=== PATIENT | female | born 1975 | race Caucasian/White ===

== ENCOUNTER 2017-04-25 17:29 | Emergency (ER) | payer MEDICAID ==
[~2017-04-25] VITALS: Ht 170.2 cm; Wt 67.6 kg
[~2017-04-25 17:29] MED LIST: ACETAMINOPHEN-1 EAC1 PO; ACYCLOVIR PO; AMOX TR-K CLV1 EAC4 PO; AMOXICILLIN500 M1 PO; ANTIVERT25 MG PO; BACTRIM DS TAB1 EACH PO; BENTYL 20 MG TA20 M1 PO; BENTYL20 MG PO; BENZONATATE200 MG PO; BUSPAR30 MG PO; BUSPIRONE HCL10 MG PO; CELEXA20 MG PO; CEPHALEXIN 500500 M3 PO; CIPRO250 M2 PO; CIPRO500 MG PO; CIPROFLOXACIN500 M1 PO; CLONAZEPAM 1 MG1 M1 PO; COMPAZINE10 MG PO; DOXYCYCLINE 10100 MG PO; EASY-LAX100 MG PO; ENOXAPARIN40 MG/0.1 SQ; ERYTHROMYCIN250 M1 PO; ERYTHROMYCIN250 MG PO; FLAGYL500 MG PO; FLEXERIL PO; FLOMAX0.4 MG PO; HYDROCODONE-AP1 EAC6 PO; HYDROCODONE-AP1 EACH PO; IBUPROFEN 800800 M1 PO; IMODIUM; IMODIUM A-D2 MG PO; LAMICTAL XR100 MG PO; LAMICTAL100 MG PO; LEVSIN-SL0.125 MG SL; LOMOTIL 2.5-0.01 TAB PO; LOMOTIL TABLET1 EACH PO; LOPERAMIDE 2 MG2 M1 PO; MACROBID 100 M100 M1 PO; MACROBID 100 M100 M2 PO; MIRALAX17 GM PO; NAPROSYN500 MG PO; NORCO 5-325 TA1 EACH PO; OMEPRAZOLE 20 M20 M1 PO; OMEPRAZOLE20 M1 PO; OMEPRAZOLE40 MG PO; ONDANSETRON HCL4 M2 PO; ONDANSETRON ODT4 MG DISSOLVE; ONDANSETRON ODT8 MG PO; PHENAZOPYRIDIN200 M2 PO; PHENERGAN 25 MG25 M1 PO; PRENATAL TABLE1 EAC3 PO; PRILOSEC40 MG PO; PROMETHAZINE TOP; PROTONIX 20 MG20 M1 PO; PROTONIX40 M1 PO; REGLAN 10 MG TA10 MG PO; TRANSDERM-SCO1 PATC1 TRANSDERM; TRINATE TABLET1 TAB PO; VICODIN 5-3001 EACH PO; VISTARIL 25 MG25 M1 PO; WELLBUTRIN XL150 MG PO; WELLBUTRIN XL300 MG PO; XANAX XR1 MG PO; ZANTAC 150MG T150 MG PO; ZOFRAN 4 MG ORAL4 MG PO; ZOFRAN ODT4 MG PO; ZOFRAN ODT4 MG SUBLING; ZOFRAN4 MG PO; ZPAK PO
[2017-04-25] MEDS ORDERED: PRENATAL PO (17:37)
[2017-04-25 18:06] LABS: ABSOLUTE BASOPHILS 0.1 thou/uL (0.0-0.2); ABSOLUTE EOSINOPHILS 0.1 thou/uL (0.0-0.7); ABSOLUTE LYMPHOCYTES 1.6 thou/uL (0.8-5.3); ABSOLUTE MONOCYTES 0.4 thou/uL (0.0-1.2); ABSOLUTE NEUTROPHILS 5.5 thou/uL (1.6-8.1); BASOPHILS 0.9 %; EOSINOPHILS 0.7 %; HEMATOCRIT 37.1 % (37.0-47.0); HEMOGLOBIN 12.3 gm/dL (12.0-15.0); LYMPHOCYTES 21.1 %; MCH 27.4 pg (26.0-34.0); MCHC 33.1 g/dL (28.0-37.0); MCV 82.7 fL (80.0-100.0); MONOCYTES 5.7 %; MPV 8.9 fl. (7.2-11.1); NUCLEATED RBCS 0 /100WBC; PLATELET COUNT* 216 thou/uL (150-400); POLYS 71.6 %; RBC 4.49 mil/uL (4.20-5.00); RDW-CV 15.8 % (10.5-14.5); WBC 7.7 thou/uL (4.0-11.0)
[2017-04-25 18:10] LABS: URINE BILIRUBIN NEGATIVE (Negative); URINE BLOOD NEGATIVE (Negative); URINE CLARITY CLEAR; URINE COLOR YELLOW; URINE GLUCOSE-RANDOM NEGATIVE (Negative); URINE KETONES NEGATIVE (Negative); URINE LEUKOCYTES-REFLEX NEGATIVE (Negative); URINE NITRITE-REFLEX NEGATIVE (Negative); URINE PROTEIN NEGATIVE (Negative); URINE SPECIFIC GRAVITY 1.025 (1.005-1.030); URINE UROBILINOGEN 0.2 E.U./dl (0.2-1.0)
[2017-04-25 18:14] LABS: CALCIUM 8.6 mg/dL (8.5-10.1); CREATININE 0.7 mg/dL (0.6-1.3); POTASSIUM 3.5 mmol/L (3.5-5.1)
[2017-04-25 18:19] LABS: ALBUMIN 3.6 g/dL (3.4-5.0); TOTAL BILIRUBIN 0.3 mg/dL (<0.1-1.0); TOTAL PROTEIN 7.2 g/dL (6.4-8.2)
[2017-04-25 18:40] LABS: AMP/METHAMP Negative (Negative); BARBITURATES Negative (Negative); BENZODIAZEPINES Negative (Negative); COCAINE Negative (Negative); METHADONE Negative (Negative); OPIATES Negative (Negative); PCP Negative (Negative); THC Negative (Negative)
[2017-04-25 19:49] VITALS: BP 119/78
== END 2017-04-25 19:51 | disposition home or self-care (01) ==
LOC: M.ERS 17:29
PROVIDERS: Physician Assistant
DX: O20.0 Threatened abortion (principal); Z3A.11 11 weeks gestation of pregnancy; F41.9 Anxiety disorder, unspecified; F32.9 Major depressive disorder, single episode, unspecified; Z87.442 Personal history of urinary calculi; Z97.8 Presence of other specified devices; Z98.890 Other specified postprocedural states; Z91.041 Radiographic dye allergy status; Z88.8 Allergy status to other drugs, medicaments and biological substances; Z87.891 Personal history of nicotine dependence

== ENCOUNTER 2018-01-06 18:17 | Emergency (ER) | payer OTHER, MEDICAID ==
[~2018-01-06] VITALS: Ht 170.2 cm; Wt 68.0 kg
[~2018-01-06 18:17] MED LIST changes: +PRENATAL PO
[2018-01-06 18:36] LABS: URINE BILIRUBIN NEGATIVE (Negative); URINE BLOOD NEGATIVE (Negative); URINE CLARITY CLEAR; URINE COLOR YELLOW; URINE GLUCOSE-RANDOM NEGATIVE (Negative); URINE KETONES NEGATIVE (Negative); URINE LEUKOCYTES-REFLEX NEGATIVE (Negative); URINE NITRITE-REFLEX NEGATIVE (Negative); URINE PROTEIN NEGATIVE (Negative); URINE UROBILINOGEN 0.2 E.U./dl (0.2-1.0)
[2018-01-06 19:07] LABS: ABSOLUTE BASOPHILS 0.1 thou/uL (0.0-0.2); ABSOLUTE EOSINOPHILS 0.1 thou/uL (0.0-0.7); ABSOLUTE LYMPHOCYTES 1.4 thou/uL (0.8-5.3); ABSOLUTE MONOCYTES 0.4 thou/uL (0.0-1.2); BASOPHILS 1.1 %; EOSINOPHILS 2.3 %; HEMATOCRIT 37.8 % (37.0-47.0); HEMOGLOBIN 12.6 gm/dL (12.0-15.0); LYMPHOCYTES 28.4 %; MCH 29.2 pg (26.0-34.0); MCHC 33.5 g/dL (28.0-37.0); MCV 87.1 fL (80.0-100.0); MONOCYTES 8.3 %; MPV 8.2 fl. (7.2-11.1); NUCLEATED RBCS 0 /100WBC; PLATELET COUNT* 230 thou/uL (150-400); POLYS 59.9 %; RBC 4.33 mil/uL (4.20-5.00); RDW-CV 15.9 % (10.5-14.5); WBC 5.1 thou/uL (4.0-11.0)
[2018-01-06 19:14] LABS: CALCIUM 8.3 mg/dL (8.5-10.1); POTASSIUM 3.7 mmol/L (3.5-5.1)
[2018-01-06 19:19] LABS: ALBUMIN 3.7 g/dL (3.4-5.0); TOTAL BILIRUBIN 0.3 mg/dL (<0.1-1.0)
[2018-01-06] MEDS ORDERED: LEVSIN0.125 MG PO (20:22)
[2018-01-06] MEDS ORDERED: CARAFATE1 GM/10 ML PO (20:22)
[2018-01-06 20:54] VITALS: BP 147/90
== END 2018-01-06 20:55 | disposition home or self-care (01) ==
LOC: M.ERS 18:17
PROVIDERS: Nurse Practitioner Family
DX: K27.9 Peptic ulcer, site unspecified, unspecified as acute or chronic, without hemorrhage or perforation (principal); F41.9 Anxiety disorder, unspecified; K50.90 Crohn's disease, unspecified, without complications; F32.9 Major depressive disorder, single episode, unspecified; Z87.891 Personal history of nicotine dependence; Z91.041 Radiographic dye allergy status; Z88.8 Allergy status to other drugs, medicaments and biological substances

== ENCOUNTER → 2018-01-25 | Outpatient (CLI) | payer MEDICAID ==
[~2018-01-25] MED LIST changes: +CARAFATE1 GM/10 ML PO; +LEVSIN0.125 MG PO
== END ==
LOC: M.NUC 13:00
DX: R11.2 Nausea with vomiting, unspecified (principal); R19.7 Diarrhea, unspecified

== ENCOUNTER → 2018-03-01 | Outpatient (CLI) | payer MEDICAID | LOC: M.NUC 11:50 | DX: R11.2 Nausea with vomiting, unspecified (principal); R19.7 Diarrhea, unspecified; R10.9 Unspecified abdominal pain ==

== ENCOUNTER 2018-04-29 13:03 | Emergency (ER) | payer MEDICAID ==
[~2018-04-29] VITALS: Ht 170.2 cm; Wt 77.1 kg
[2018-04-29 13:16] VITALS: BP 146/89
[2018-04-29] MEDS ORDERED: ZOFRAN ODT4 MG DISSOLVE (13:34)
[2018-04-29] MEDS ORDERED: CELEXA10 MG PO (13:34)
[2018-04-29] MEDS ORDERED: BENTYL 10 MG CA10 M1 PO (13:34)
[2018-04-29 13:43] LABS: URINE BILIRUBIN NEGATIVE (Negative); URINE BLOOD NEGATIVE (Negative); URINE CLARITY CLEAR; URINE COLOR YELLOW; URINE GLUCOSE-RANDOM NEGATIVE (Negative); URINE KETONES NEGATIVE (Negative); URINE LEUKOCYTES-REFLEX NEGATIVE (Negative); URINE NITRITE-REFLEX NEGATIVE (Negative); URINE PROTEIN NEGATIVE (Negative); URINE SPECIFIC GRAVITY 1.025 (1.005-1.030); URINE UROBILINOGEN 0.2 E.U./dl (0.2-1.0)
[2018-04-29 14:05] LABS: ABSOLUTE EOSINOPHILS 0.1 thou/uL (0.0-0.7); ABSOLUTE MONOCYTES 0.3 thou/uL (0.0-1.2); HEMOGLOBIN 13.2 gm/dL (12.0-15.0); MPV 8.5 fl. (7.2-11.1); WBC 6.7 thou/uL (4.0-11.0)
[2018-04-29 14:07] LABS: ABSOLUTE LYMPHOCYTES 1.5 thou/uL (0.8-5.3); ABSOLUTE NEUTROPHILS 4.7 thou/uL (1.6-8.1); BASOPHILS 0.7 %; EOSINOPHILS 1.3 %; HEMATOCRIT 38.8 % (37.0-47.0); LYMPHOCYTES 22.7 %; MCH 30.4 pg (26.0-34.0); MCHC 34.1 g/dL (28.0-37.0); MCV 89.2 fL (80.0-100.0); MONOCYTES 5.2 %; NUCLEATED RBCS 0 /100WBC; PLATELET COUNT* 210 thou/uL (150-400); POLYS 70.1 %; RBC 4.35 mil/uL (4.20-5.00); RDW-CV 12.5 % (10.5-14.5)
[2018-04-29 14:16] LABS: CALCIUM 9.1 mg/dL (8.5-10.1); CREATININE 0.9 mg/dL (0.6-1.3)
[2018-04-29 14:21] LABS: ALBUMIN 3.7 g/dL (3.4-5.0); TOTAL BILIRUBIN 0.3 mg/dL (<0.1-1.0); TOTAL PROTEIN 7.2 g/dL (6.4-8.2)
[2018-04-29] MEDS ORDERED: MEDROLDOSEPACK PO (15:03)
[2018-04-29] MEDS ORDERED: IBUPROFEN 800800 M1 PO (15:03)
[2018-04-29] MEDS ORDERED: HYDROCODONE-AP1 EAC6 PO (15:03)
[2018-04-29] MEDS ORDERED: FLEXERIL PO (15:03)
[2018-04-29] MEDS ORDERED: ONDANSETRON HCL4 M2 PO (15:06)
== END 2018-04-29 15:46 | disposition home or self-care (01) ==
LOC: M.ERS 13:03
PROVIDERS: Nurse Practitioner Family
DX: M54.31 Sciatica, right side (principal); R19.7 Diarrhea, unspecified; R11.2 Nausea with vomiting, unspecified; R10.31 Right lower quadrant pain; N89.8 Other specified noninflammatory disorders of vagina; R20.2 Paresthesia of skin; K50.90 Crohn's disease, unspecified, without complications; F41.9 Anxiety disorder, unspecified; F32.9 Major depressive disorder, single episode, unspecified; Z87.891 Personal history of nicotine dependence; Z88.8 Allergy status to other drugs, medicaments and biological substances; Z91.041 Radiographic dye allergy status

== ENCOUNTER 2018-05-01 17:11 | Emergency (ER) | payer MEDICAID ==
[~2018-05-01] VITALS: Ht 170.2 cm; Wt 77.1 kg
[~2018-05-01 17:11] MED LIST changes: +BENTYL 10 MG CA10 M1 PO; +CELEXA10 MG PO; +MEDROLDOSEPACK PO; +ZOFRAN ODT4 MG DISSOLVE
[2018-05-01 17:35] LABS: URINE BILIRUBIN NEGATIVE (Negative); URINE BLOOD TRACE (Negative); URINE CLARITY CLEAR; URINE COLOR YELLOW; URINE GLUCOSE-RANDOM NEGATIVE (Negative); URINE KETONES NEGATIVE (Negative); URINE LEUKOCYTES-REFLEX NEGATIVE (Negative); URINE NITRITE-REFLEX NEGATIVE (Negative); URINE PROTEIN NEGATIVE (Negative); URINE SPECIFIC GRAVITY 1.015 (1.005-1.030); URINE UROBILINOGEN 0.2 E.U./dl (0.2-1.0)
[2018-05-01 17:57] LABS: ABSOLUTE LYMPHOCYTES 1.3 thou/uL (0.8-5.3); ABSOLUTE MONOCYTES 0.3 thou/uL (0.0-1.2); ABSOLUTE NEUTROPHILS 4.2 thou/uL (1.6-8.1); BASOPHILS 0.6 %; EOSINOPHILS 0.6 %; HEMATOCRIT 38.9 % (37.0-47.0); HEMOGLOBIN 13.1 gm/dL (12.0-15.0); LYMPHOCYTES 22.6 %; MCH 30.1 pg (26.0-34.0); MCHC 33.7 g/dL (28.0-37.0); MCV 89.3 fL (80.0-100.0); MONOCYTES 4.3 %; MPV 8.1 fl. (7.2-11.1); NUCLEATED RBCS 0 /100WBC; PLATELET COUNT* 199 thou/uL (150-400); POLYS 71.9 %; RBC 4.35 mil/uL (4.20-5.00); RDW-CV 12.5 % (10.5-14.5); WBC 5.9 thou/uL (4.0-11.0)
[2018-05-01 18:04] LABS: CALCIUM 8.6 mg/dL (8.5-10.1); POTASSIUM 3.8 mmol/L (3.5-5.1)
[2018-05-01 18:09] LABS: ALBUMIN 3.6 g/dL (3.4-5.0); TOTAL BILIRUBIN 0.3 mg/dL (<0.1-1.0)
[2018-05-01 18:38] VITALS: BP 134/75
== END 2018-05-01 18:40 | disposition home or self-care (01) ==
LOC: M.ERS 17:11
PROVIDERS: Nurse Practitioner Family
DX: R10.31 Right lower quadrant pain (principal); F41.9 Anxiety disorder, unspecified; F32.9 Major depressive disorder, single episode, unspecified; K50.90 Crohn's disease, unspecified, without complications; K31.84 Gastroparesis; Z87.891 Personal history of nicotine dependence; Z91.041 Radiographic dye allergy status; Z87.442 Personal history of urinary calculi; Z88.8 Allergy status to other drugs, medicaments and biological substances

== ENCOUNTER 2018-06-13 16:13 | Emergency (ER) | payer MEDICAID ==
[~2018-06-13] VITALS: Ht 170.2 cm; Wt 77.1 kg
[2018-06-13 16:41] LABS: URINE BILIRUBIN NEGATIVE (Negative); URINE BLOOD 2+ (Negative); URINE GLUCOSE-RANDOM NEGATIVE (Negative); URINE KETONES NEGATIVE (Negative); URINE LEUKOCYTES-REFLEX NEGATIVE (Negative); URINE NITRITE-REFLEX NEGATIVE (Negative); URINE PROTEIN 2+ (Negative); URINE UROBILINOGEN 0.2 E.U./dl (0.2-1.0)
[2018-06-13 16:44] LABS: URINE CLARITY CLOUDY; URINE COLOR RED
[2018-06-13 17:07] LABS: ABSOLUTE EOSINOPHILS 0.1 thou/uL (0.0-0.7); ABSOLUTE LYMPHOCYTES 1.4 thou/uL (0.8-5.3); ABSOLUTE MONOCYTES 0.3 thou/uL (0.0-1.2); ABSOLUTE NEUTROPHILS 3.7 thou/uL (1.6-8.1); BASOPHILS 0.8 %; EOSINOPHILS 2.2 %; HEMATOCRIT 37.4 % (37.0-47.0); HEMOGLOBIN 12.4 gm/dL (12.0-15.0); MCH 29.3 pg (26.0-34.0); MCHC 33.1 g/dL (28.0-37.0); MCV 88.6 fL (80.0-100.0); MONOCYTES 5.8 %; MPV 8.5 fl. (7.2-11.1); NUCLEATED RBCS 0 /100WBC; PLATELET COUNT* 239 thou/uL (150-400); POLYS 66.2 %; RBC 4.22 mil/uL (4.20-5.00); RDW-CV 13.4 % (10.5-14.5); WBC 5.7 thou/uL (4.0-11.0)
[2018-06-13 17:18] LABS: APTT 29.2 Seconds (25.0-31.3); PROTIME 10.6 Seconds (9.20-11.50)
[2018-06-13 17:30] LABS: URINE RBC >20 Many /HPF (0-2)
[2018-06-13 17:31] LABS: SQUAMOUS 0-3 Few /LPF (0-3); URINE WBC-REFLEX 6-15 Few /HPF (0-5)
[2018-06-13 17:32] LABS: ALBUMIN 3.7 g/dL (3.4-5.0); CALCIUM 8.5 mg/dL (8.5-10.1); CREATININE 0.8 mg/dL (0.6-1.3); POTASSIUM 3.7 mmol/L (3.5-5.1); TOTAL BILIRUBIN 0.3 mg/dL (<0.1-1.0); TOTAL PROTEIN 7.1 g/dL (6.4-8.2)
[2018-06-13 17:33] LABS: BACTERIA-REFLEX 1-9 Few /HPF (None Seen); CASTS None Seen /LPF (None Seen); CRYSTALS None Seen /LPF (None Seen); MUCUS None Seen strn/LPF (None Seen)
[2018-06-13 18:01] VITALS: BP 154/74
== END 2018-06-13 18:01 | disposition home or self-care (01) ==
LOC: M.ERS 16:13
PROVIDERS: Nurse Practitioner Family
DX: N93.8 Other specified abnormal uterine and vaginal bleeding (principal); K31.84 Gastroparesis; K50.90 Crohn's disease, unspecified, without complications; F41.9 Anxiety disorder, unspecified; F32.9 Major depressive disorder, single episode, unspecified; Z91.041 Radiographic dye allergy status; Z88.6 Allergy status to analgesic agent; Z88.8 Allergy status to other drugs, medicaments and biological substances; Z87.891 Personal history of nicotine dependence; Z98.890 Other specified postprocedural states; Z87.442 Personal history of urinary calculi; Z90.49 Acquired absence of other specified parts of digestive tract

== ENCOUNTER 2018-07-05 17:00 | Emergency (ER) | payer MEDICAID ==
[~2018-07-05] VITALS: Ht 170.2 cm; Wt 68.0 kg
[2018-07-05] MEDS ORDERED: PROTONIX 20 MG20 M1 PO (17:29)
[2018-07-05 18:11] LABS: ABSOLUTE BASOPHILS 0.1 thou/uL (0.0-0.2); ABSOLUTE EOSINOPHILS 0.2 thou/uL (0.0-0.7); ABSOLUTE LYMPHOCYTES 1.5 thou/uL (0.8-5.3); ABSOLUTE MONOCYTES 0.3 thou/uL (0.0-1.2); ABSOLUTE NEUTROPHILS 3.3 thou/uL (1.6-8.1); BASOPHILS 1.1 %; EOSINOPHILS 4.6 %; HEMATOCRIT 36.8 % (37.0-47.0); HEMOGLOBIN 12.2 gm/dL (12.0-15.0); MCH 29.1 pg (26.0-34.0); MCHC 33.3 g/dL (28.0-37.0); MCV 87.6 fL (80.0-100.0); MONOCYTES 6.1 %; MPV 8.2 fl. (7.2-11.1); NUCLEATED RBCS 0 /100WBC; PLATELET COUNT* 277 thou/uL (150-400); POLYS 61.2 %; RDW-CV 13.1 % (10.5-14.5); WBC 5.4 thou/uL (4.0-11.0)
[2018-07-05 18:16] LABS: URINE BLOOD NEGATIVE (Negative); URINE CLARITY CLEAR; URINE COLOR YELLOW; URINE GLUCOSE-RANDOM NEGATIVE (Negative); URINE KETONES 1+ (Negative); URINE LEUKOCYTES-REFLEX NEGATIVE (Negative); URINE NITRITE-REFLEX NEGATIVE (Negative); URINE PROTEIN TRACE (Negative); URINE SPECIFIC GRAVITY 1.025 (1.005-1.030); URINE UROBILINOGEN 0.2 E.U./dl (0.2-1.0)
[2018-07-05 18:22] LABS: ALBUMIN 3.7 g/dL (3.4-5.0); CALCIUM 8.8 mg/dL (8.5-10.1); CREATININE 0.8 mg/dL (0.6-1.3); POTASSIUM 3.7 mmol/L (3.5-5.1); TOTAL BILIRUBIN 0.3 mg/dL (<0.1-1.0); TOTAL PROTEIN 7.2 g/dL (6.4-8.2)
[2018-07-05 18:23] LABS: ICTOTEST (BILI CONFIRMATORY) Negative (Negative); URINE BILIRUBIN 1+ (Negative)
[2018-07-05] MEDS ORDERED: NORCO 5-325 TA1 EACH PO (19:46)
[2018-07-05 20:00] VITALS: BP 144/89
== END 2018-07-05 20:03 | disposition home or self-care (01) ==
LOC: M.ERS 17:00
PROVIDERS: Physician Assistant
DX: R10.31 Right lower quadrant pain (principal); G89.18 Other acute postprocedural pain; R11.2 Nausea with vomiting, unspecified; K50.90 Crohn's disease, unspecified, without complications; F32.9 Major depressive disorder, single episode, unspecified; F41.9 Anxiety disorder, unspecified; Z87.891 Personal history of nicotine dependence; Z91.041 Radiographic dye allergy status; Z88.8 Allergy status to other drugs, medicaments and biological substances; Z87.442 Personal history of urinary calculi; Z90.49 Acquired absence of other specified parts of digestive tract

== ENCOUNTER 2018-08-04 16:49 | Emergency (ER) | payer MEDICAID ==
[~2018-08-04] VITALS: Ht 165.1 cm; Wt 68.0 kg
[2018-08-04] MEDS ORDERED: LOPERAMIDE 2 MG2 M1 PO (16:59)
[2018-08-04 17:01] LABS: URINE BILIRUBIN NEGATIVE (Negative); URINE BLOOD 1+ (Negative); URINE COLOR YELLOW; URINE GLUCOSE-RANDOM NEGATIVE (Negative); URINE KETONES NEGATIVE (Negative); URINE LEUKOCYTES-REFLEX 1+ (Negative); URINE PROTEIN 1+ (Negative); URINE SPECIFIC GRAVITY 1.025 (1.005-1.030); URINE UROBILINOGEN 0.2 E.U./dl (0.2-1.0)
[2018-08-04 17:08] LABS: URINE CLARITY HAZY; URINE NITRITE-REFLEX POSITIVE (Negative)
[2018-08-04 17:15] LABS: SQUAMOUS 4-10 Moderate /LPF (0-3)
[2018-08-04 17:16] LABS: CASTS None Seen /LPF (None Seen); CRYSTALS None Seen /LPF (None Seen); URINE RBC 3-10 Few /HPF (0-2); URINE WBC-REFLEX >25 Many /HPF (0-5)
[2018-08-04 17:55] LABS: ABSOLUTE LYMPHOCYTES 1.4 thou/uL (0.8-5.3); ABSOLUTE MONOCYTES 0.5 thou/uL (0.0-1.2); ABSOLUTE NEUTROPHILS 4.7 thou/uL (1.6-8.1); BASOPHILS 0.6 %; EOSINOPHILS 0.6 %; HEMATOCRIT 37.5 % (37.0-47.0); HEMOGLOBIN 12.3 gm/dL (12.0-15.0); LYMPHOCYTES 21.2 %; MCHC 32.8 g/dL (28.0-37.0); MCV 85.4 fL (80.0-100.0); MONOCYTES 6.8 %; MPV 9.2 fl. (7.2-11.1); NUCLEATED RBCS 0 /100WBC; PLATELET COUNT* 199 thou/uL (150-400); POLYS 70.8 %; RBC 4.39 mil/uL (4.20-5.00); RDW-CV 13.6 % (10.5-14.5); WBC 6.6 thou/uL (4.0-11.0)
[2018-08-04 18:08] LABS: ALBUMIN 3.7 g/dL (3.4-5.0); CALCIUM 8.7 mg/dL (8.5-10.1); CREATININE 0.9 mg/dL (0.6-1.3); POTASSIUM 3.9 mmol/L (3.5-5.1); TOTAL BILIRUBIN 0.6 mg/dL (<0.1-1.0); TOTAL PROTEIN 6.9 g/dL (6.4-8.2)
[2018-08-04] MEDS ORDERED: CEFDINIR300 MG PO ×2 (18:33→18:36)
[2018-08-04] MEDS ORDERED: KEFLEX500 M1 PO (18:33)
[2018-08-04] MEDS ORDERED: PYRIDIUM100 M1 PO (18:33)
[2018-08-04 18:52] VITALS: BP 119/72
== END 2018-08-04 18:54 | disposition home or self-care (01) ==
LOC: M.ERS 16:49
PROVIDERS: Nurse Practitioner Family
DX: N39.0 Urinary tract infection, site not specified (principal); R11.2 Nausea with vomiting, unspecified; K50.90 Crohn's disease, unspecified, without complications; F41.9 Anxiety disorder, unspecified; F32.9 Major depressive disorder, single episode, unspecified; K31.84 Gastroparesis; Z87.442 Personal history of urinary calculi; Z87.891 Personal history of nicotine dependence; Z91.041 Radiographic dye allergy status; Z88.8 Allergy status to other drugs, medicaments and biological substances; Z90.49 Acquired absence of other specified parts of digestive tract

== ENCOUNTER 2018-08-22 21:06 | Emergency (ER) | payer MEDICAID ==
[~2018-08-22] VITALS: Ht 170.2 cm; Wt 66.2 kg
[~2018-08-22 21:06] MED LIST changes: +CEFDINIR300 MG PO; +KEFLEX500 M1 PO; +PYRIDIUM100 M1 PO
[2018-08-22] MEDS ORDERED: CARAFATE 1 GM TA1 G1 PO (21:18)
[2018-08-22 21:19] LABS: URINE BILIRUBIN NEGATIVE (Negative); URINE BLOOD 1+ (Negative); URINE CLARITY CLEAR; URINE COLOR YELLOW; URINE GLUCOSE-RANDOM NEGATIVE (Negative); URINE KETONES NEGATIVE (Negative); URINE NITRITE-REFLEX NEGATIVE (Negative); URINE PROTEIN 1+ (Negative); URINE SPECIFIC GRAVITY 1.015 (1.005-1.030); URINE UROBILINOGEN 0.2 E.U./dl (0.2-1.0)
[2018-08-22 21:24] LABS: URINE LEUKOCYTES-REFLEX 3+ (Negative)
[2018-08-22 21:26] LABS: BACTERIA-REFLEX >30 Many /HPF (None Seen); CASTS None Seen /LPF (None Seen); CRYSTALS None Seen /LPF (None Seen); SQUAMOUS 0-3 Few /LPF (0-3); URINE RBC 0-2 Rare /HPF (0-2); URINE WBC-REFLEX >25 Many /HPF (0-5)
[2018-08-22] MEDS ORDERED: PYRIDIUM200 MG PO (21:52)
[2018-08-22 22:05] VITALS: BP 138/77
== END 2018-08-22 22:06 | disposition home or self-care (01) ==
LOC: M.ERS 21:06
PROVIDERS: Family Medicine
DX: R10.32 Left lower quadrant pain (principal); F41.9 Anxiety disorder, unspecified; K50.90 Crohn's disease, unspecified, without complications; F32.9 Major depressive disorder, single episode, unspecified; Z87.442 Personal history of urinary calculi; Z87.891 Personal history of nicotine dependence; Z91.041 Radiographic dye allergy status; Z88.8 Allergy status to other drugs, medicaments and biological substances; Z95.0 Presence of cardiac pacemaker; Z90.49 Acquired absence of other specified parts of digestive tract

== ENCOUNTER 2018-09-05 16:11 | Emergency (ER) | payer MEDICAID ==
[~2018-09-05] VITALS: Ht 170.2 cm; Wt 65.3 kg
[~2018-09-05 16:11] MED LIST changes: +CARAFATE 1 GM TA1 G1 PO; +PYRIDIUM200 MG PO
[2018-09-05 16:31] LABS: URINE BILIRUBIN NEGATIVE (Negative); URINE BLOOD 3+ (Negative); URINE CLARITY CLEAR; URINE COLOR YELLOW; URINE GLUCOSE-RANDOM NEGATIVE (Negative); URINE KETONES NEGATIVE (Negative); URINE LEUKOCYTES-REFLEX NEGATIVE (Negative); URINE NITRITE-REFLEX NEGATIVE (Negative); URINE PROTEIN TRACE (Negative); URINE UROBILINOGEN 0.2 E.U./dl (0.2-1.0)
[2018-09-05 16:39] LABS: MUCUS 4-6 Moderate strn/LPF (None Seen); SQUAMOUS >10 Many /LPF (0-3)
[2018-09-05 16:40] LABS: BACTERIA-REFLEX 1-9 Few /HPF (None Seen); CASTS None Seen /LPF (None Seen); CRYSTALS None Seen /LPF (None Seen); URINE RBC 3-10 Few /HPF (0-2); URINE WBC-REFLEX 0-5 Rare /HPF (0-5)
[2018-09-05 17:54] LABS: ABSOLUTE BASOPHILS 0.1 thou/uL (0.0-0.2); ABSOLUTE EOSINOPHILS 0.1 thou/uL (0.0-0.7); ABSOLUTE LYMPHOCYTES 1.5 thou/uL (0.8-5.3); ABSOLUTE MONOCYTES 0.3 thou/uL (0.0-1.2); ABSOLUTE NEUTROPHILS 4.7 thou/uL (1.6-8.1); BASOPHILS 0.8 %; EOSINOPHILS 1.1 %; HEMATOCRIT 38.7 % (37.0-47.0); HEMOGLOBIN 12.7 gm/dL (12.0-15.0); LYMPHOCYTES 22.8 %; MCH 27.9 pg (26.0-34.0); MCHC 32.8 g/dL (28.0-37.0); MCV 84.8 fL (80.0-100.0); MONOCYTES 4.4 %; MPV 9.3 fl. (7.2-11.1); NUCLEATED RBCS 0 /100WBC; PLATELET COUNT* 219 thou/uL (150-400); POLYS 70.9 %; RBC 4.56 mil/uL (4.20-5.00); RDW-CV 13.6 % (10.5-14.5); WBC 6.6 thou/uL (4.0-11.0)
[2018-09-05 18:01] LABS: CALCIUM 9.4 mg/dL (8.5-10.1); CREATININE 0.9 mg/dL (0.6-1.3); POTASSIUM 3.8 mmol/L (3.5-5.1)
[2018-09-05 18:05] LABS: ALBUMIN 3.9 g/dL (3.4-5.0); TOTAL BILIRUBIN 0.9 mg/dL (<0.1-1.0); TOTAL PROTEIN 7.3 g/dL (6.4-8.2)
[2018-09-05] MEDS ORDERED: CIPRO500 M1 PO (19:06)
[2018-09-05] MEDS ORDERED: CARAFATE1 GM/10 ML PO (19:06)
[2018-09-05] MEDS ORDERED: ACETAMINOPHEN-1 EAC1 PO (19:23)
[2018-09-05 19:27] VITALS: BP 136/85
== END 2018-09-05 19:20 | disposition home or self-care (01) ==
LOC: M.ERS 16:11
PROVIDERS: Nurse Practitioner Family
DX: N39.0 Urinary tract infection, site not specified (principal); N83.202 Unspecified ovarian cyst, left side; R16.0 Hepatomegaly, not elsewhere classified; R11.2 Nausea with vomiting, unspecified; K50.90 Crohn's disease, unspecified, without complications; F41.9 Anxiety disorder, unspecified; F32.9 Major depressive disorder, single episode, unspecified; K31.84 Gastroparesis; Z87.442 Personal history of urinary calculi; Z90.49 Acquired absence of other specified parts of digestive tract; Z87.891 Personal history of nicotine dependence; Z91.041 Radiographic dye allergy status; Z88.8 Allergy status to other drugs, medicaments and biological substances

== ENCOUNTER 2018-09-13 16:32 | Emergency (ER) | payer MEDICAID ==
[~2018-09-13] VITALS: Ht 170.2 cm; Wt 64.9 kg
[~2018-09-13 16:32] MED LIST changes: +CIPRO500 M1 PO
[2018-09-13 17:06] LABS: URINE BILIRUBIN NEGATIVE (Negative); URINE BLOOD NEGATIVE (Negative); URINE CLARITY CLEAR; URINE COLOR YELLOW; URINE GLUCOSE-RANDOM NEGATIVE (Negative); URINE KETONES NEGATIVE (Negative); URINE LEUKOCYTES-REFLEX NEGATIVE (Negative); URINE NITRITE-REFLEX NEGATIVE (Negative); URINE PROTEIN TRACE (Negative); URINE SPECIFIC GRAVITY >= 1.030 (1.005-1.030); URINE UROBILINOGEN 0.2 E.U./dl (0.2-1.0)
[2018-09-13 17:12] LABS: ABSOLUTE LYMPHOCYTES 1.3 thou/uL (0.8-5.3); ABSOLUTE MONOCYTES 0.3 thou/uL (0.0-1.2); ABSOLUTE NEUTROPHILS 3.3 thou/uL (1.6-8.1); BASOPHILS 0.8 %; EOSINOPHILS 0.8 %; HEMOGLOBIN 12.3 gm/dL (12.0-15.0); LYMPHOCYTES 26.6 %; MCH 28.1 pg (26.0-34.0); MCHC 33.2 g/dL (28.0-37.0); MCV 84.5 fL (80.0-100.0); MONOCYTES 5.9 %; MPV 8.9 fl. (7.2-11.1); NUCLEATED RBCS 0 /100WBC; PLATELET COUNT* 223 thou/uL (150-400); POLYS 65.9 %; RBC 4.38 mil/uL (4.20-5.00); RDW-CV 13.3 % (10.5-14.5); WBC 4.9 thou/uL (4.0-11.0)
[2018-09-13 17:23] LABS: ANION GAP 10 mmol/L (7-16); BUN 7 mg/dL (7-18); CALCIUM 8.6 mg/dL (8.5-10.1); CHLORIDE 105 mmol/L (98-107); CO2 27 mmol/L (21-32); CREATININE 0.9 mg/dL (0.6-1.3); GLUCOSE 115 mg/dL (70-99); POTASSIUM 3.3 mmol/L (3.5-5.1); SODIUM 142 mmol/L (136-145)
[2018-09-13 17:33] LABS: ALBUMIN 3.8 g/dL (3.4-5.0); ALKALINE PHOSPHATASE 94 U/L (46-116); LIPASE 128 U/L (73-393); SGOT 18 U/L (15-37); SGPT 24 U/L (30-65); TOTAL BILIRUBIN 0.6 mg/dL (<0.1-1.0); TROPONIN-I LEVEL <0.06 ng/mL (<0.06)
[2018-09-13] MEDS ORDERED: CARAFATE1 GM/10 ML PO (18:21)
[2018-09-13 18:41] VITALS: BP 120/80
--- NOTE | 2018-09-14 10:46 | EKG ---
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
== END 2018-09-13 18:43 | disposition home or self-care (01) ==
LOC: M.ERS 16:32
PROVIDERS: Nurse Practitioner Family
DX: K52.9 Noninfective gastroenteritis and colitis, unspecified (principal); N20.0 Calculus of kidney; F41.9 Anxiety disorder, unspecified; K50.90 Crohn's disease, unspecified, without complications; Z90.49 Acquired absence of other specified parts of digestive tract; Z98.84 Bariatric surgery status; Z87.891 Personal history of nicotine dependence; Z91.041 Radiographic dye allergy status; Z88.8 Allergy status to other drugs, medicaments and biological substances

== ENCOUNTER → 2018-10-25 | Outpatient (CLI) | payer MEDICAID | LOC: M.CT 08:30 | DX: N20.0 Calculus of kidney (principal); J84.10 Pulmonary fibrosis, unspecified; Z98.890 Other specified postprocedural states ==

== ENCOUNTER 2018-11-18 18:14 | Emergency (ER) | payer MEDICAID ==
[~2018-11-18] VITALS: Ht 170.2 cm; Wt 61.7 kg
[2018-11-18 18:50] LABS: URINE BILIRUBIN NEGATIVE (Negative); URINE BLOOD NEGATIVE (Negative); URINE CLARITY CLEAR; URINE COLOR YELLOW; URINE GLUCOSE-RANDOM NEGATIVE (Negative); URINE KETONES NEGATIVE (Negative); URINE LEUKOCYTES-REFLEX NEGATIVE (Negative); URINE NITRITE-REFLEX NEGATIVE (Negative); URINE PROTEIN NEGATIVE (Negative); URINE UROBILINOGEN 0.2 E.U./dl (0.2-1.0)
[2018-11-18 18:52] LABS: ABSOLUTE BASOPHILS 0.1 thou/uL (0.0-0.2); ABSOLUTE LYMPHOCYTES 1.7 thou/uL (0.8-5.3); ABSOLUTE MONOCYTES 0.4 thou/uL (0.0-1.2); ABSOLUTE NEUTROPHILS 4.6 thou/uL (1.6-8.1); BASOPHILS 0.9 %; EOSINOPHILS 0.4 %; HEMOGLOBIN 12.5 gm/dL (12.0-15.0); LYMPHOCYTES 24.5 %; MCH 27.6 pg (26.0-34.0); MCHC 32.8 g/dL (28.0-37.0); MCV 84.2 fL (80.0-100.0); MONOCYTES 5.5 %; MPV 8.8 fl. (7.2-11.1); NUCLEATED RBCS 0 /100WBC; PLATELET COUNT* 231 thou/uL (150-400); POLYS 68.7 %; RBC 4.51 mil/uL (4.20-5.00); RDW-CV 14.1 % (10.5-14.5); WBC 6.8 thou/uL (4.0-11.0)
[2018-11-18 19:00] LABS: ANION GAP 9 mmol/L (7-16); BUN 9 mg/dL (7-18); CALCIUM 8.9 mg/dL (8.5-10.1); CHLORIDE 103 mmol/L (98-107); CO2 28 mmol/L (21-32); CREATININE 0.9 mg/dL (0.6-1.3); GLUCOSE 97 mg/dL (70-99); POTASSIUM 3.6 mmol/L (3.5-5.1); SODIUM 140 mmol/L (136-145)
[2018-11-18 19:09] LABS: ALBUMIN 3.7 g/dL (3.4-5.0); ALKALINE PHOSPHATASE 92 U/L (46-116); LIPASE 156 U/L (73-393); SGOT 16 U/L (15-37); SGPT 21 U/L (30-65); TOTAL BILIRUBIN 0.4 mg/dL (<0.1-1.0); TOTAL PROTEIN 7.2 g/dL (6.4-8.2); TROPONIN-I LEVEL <0.06 ng/mL (<0.06)
[2018-11-18] MEDS ORDERED: ZOFRAN ODT4 MG PO (21:13)
[2018-11-18] MEDS ORDERED: NORCO 5-325 TA1 EAC1 PO (21:13)
[2018-11-18] MEDS ORDERED: LIDOCAINE VISC100 ML SWISH&SPIT (21:13)
[2018-11-18 21:30] VITALS: BP 118/79
== END 2018-11-18 21:30 | disposition home or self-care (01) ==
LOC: M.ERS 18:14
PROVIDERS: Physician Assistant
DX: R10.13 Epigastric pain (principal); R11.2 Nausea with vomiting, unspecified; F17.210 Nicotine dependence, cigarettes, uncomplicated; F41.9 Anxiety disorder, unspecified; F32.9 Major depressive disorder, single episode, unspecified; Z90.49 Acquired absence of other specified parts of digestive tract; Z88.8 Allergy status to other drugs, medicaments and biological substances; Z87.442 Personal history of urinary calculi; Z98.51 Tubal ligation status

== ENCOUNTER 2019-02-10 13:51 | Emergency (ER) | payer MEDICAID ==
[~2019-02-10] VITALS: Ht 172.7 cm; Wt 72.6 kg
[~2019-02-10 13:51] MED LIST changes: +LIDOCAINE VISC100 ML SWISH&SPIT; +NORCO 5-325 TA1 EAC1 PO
[2019-02-10 14:10] LABS: URINE BILIRUBIN NEGATIVE (Negative); URINE BLOOD NEGATIVE (Negative); URINE CLARITY CLEAR; URINE COLOR YELLOW; URINE GLUCOSE-RANDOM NEGATIVE (Negative); URINE KETONES NEGATIVE (Negative); URINE LEUKOCYTES-REFLEX NEGATIVE (Negative); URINE NITRITE-REFLEX NEGATIVE (Negative); URINE PROTEIN NEGATIVE (Negative); URINE SPECIFIC GRAVITY 1.025 (1.005-1.030); URINE UROBILINOGEN 0.2 E.U./dl (0.2-1.0)
[2019-02-10 14:23] LABS: HEMOGLOBIN 12.2 gm/dL (12.0-15.0)
[2019-02-10 14:24] LABS: ABSOLUTE LYMPHOCYTES 0.9 thou/uL (0.8-5.3); ABSOLUTE MONOCYTES 0.2 thou/uL (0.0-1.2); BASOPHILS 0.6 %; EOSINOPHILS 0.2 %; HEMATOCRIT 36.9 % (37.0-47.0); LYMPHOCYTES 12.9 %; MCH 27.7 pg (26.0-34.0); MONOCYTES 3.1 %; MPV 8.4 fl. (7.2-11.1); NUCLEATED RBCS 0 /100WBC; PLATELET COUNT* 206 thou/uL (150-400); POLYS 83.2 %; RDW-CV 17.4 % (10.5-14.5); WBC 7.2 thou/uL (4.0-11.0)
[2019-02-10 14:33] LABS: CALCIUM 8.8 mg/dL (8.5-10.1); CREATININE 0.8 mg/dL (0.6-1.3); POTASSIUM 3.9 mmol/L (3.5-5.1)
[2019-02-10 14:36] LABS: ALBUMIN 3.7 g/dL (3.4-5.0); TOTAL BILIRUBIN 0.6 mg/dL (<0.1-1.0); TOTAL PROTEIN 6.9 g/dL (6.4-8.2)
[2019-02-10] MEDS ORDERED: ONDANSETRON ODT4 MG PO (15:02)
[2019-02-10 15:26] VITALS: BP 125/80
== END 2019-02-10 15:29 | disposition home or self-care (01) ==
LOC: M.ERS 13:51
PROVIDERS: Physician Assistant
DX: R19.7 Diarrhea, unspecified (principal); R11.2 Nausea with vomiting, unspecified; R10.13 Epigastric pain; G89.29 Other chronic pain; K50.90 Crohn's disease, unspecified, without complications; F41.9 Anxiety disorder, unspecified; F32.9 Major depressive disorder, single episode, unspecified; Z98.51 Tubal ligation status; Z87.442 Personal history of urinary calculi; Z90.49 Acquired absence of other specified parts of digestive tract; Z91.041 Radiographic dye allergy status; Z87.891 Personal history of nicotine dependence; Z88.8 Allergy status to other drugs, medicaments and biological substances

== ENCOUNTER 2019-04-29 17:05 | Inpatient (IN) | payer MEDICAID ==
[~2019-04-29] VITALS: Ht 170.2 cm; Wt 57.2 kg
[~2019-04-29 17:05] MED LIST changes: +ONDANSETRON ODT4 MG PO
[2019-04-29 17:12] VITALS: BP 162/103
[2019-04-29] MEDS ORDERED: ACETAMINOPHEN650 M5 PO (17:17)
[2019-04-29] MEDS ORDERED: VITAMIN D250 MCG PO (17:18)
[2019-04-29 18:09] LABS: URINE BILIRUBIN NEGATIVE (Negative); URINE BLOOD TRACE (Negative); URINE CLARITY CLEAR; URINE COLOR YELLOW; URINE GLUCOSE-RANDOM NEGATIVE (Negative); URINE KETONES NEGATIVE (Negative); URINE LEUKOCYTES-REFLEX 1+ (Negative); URINE NITRITE-REFLEX NEGATIVE (Negative); URINE PROTEIN NEGATIVE (Negative); URINE UROBILINOGEN 0.2 E.U./dl (0.2-1.0)
[2019-04-29 18:32] LABS: CASTS None Seen /LPF (None Seen); CRYSTALS None Seen /LPF (None Seen); MUCUS >6 Heavy strn/LPF (None Seen); SQUAMOUS >10 Many /LPF (0-3)
[2019-04-29 18:33] LABS: ABSOLUTE LYMPHOCYTES 1.8 thou/uL (0.8-5.3); ABSOLUTE MONOCYTES 0.4 thou/uL (0.0-1.2); ABSOLUTE NEUTROPHILS 6.6 thou/uL (1.6-8.1); BASOPHILS 0.5 %; EOSINOPHILS 0.5 %; HEMATOCRIT 38.5 % (37.0-47.0); HEMOGLOBIN 13.1 gm/dL (12.0-15.0); LYMPHOCYTES 19.9 %; MCH 29.8 pg (26.0-34.0); MCHC 33.9 g/dL (28.0-37.0); MCV 87.7 fL (80.0-100.0); MONOCYTES 4.4 %; MPV 8.2 fl. (7.2-11.1); NUCLEATED RBCS 0 /100WBC; PLATELET COUNT* 243 thou/uL (150-400); POLYS 74.7 %; RBC 4.39 mil/uL (4.20-5.00); RDW-CV 13.5 % (10.5-14.5); WBC 8.9 thou/uL (4.0-11.0)
[2019-04-29 18:33] LABS: BACTERIA-REFLEX 1-9 Few /HPF (None Seen); URINE RBC 0-2 Rare /HPF (0-2); URINE WBC-REFLEX 0-5 Rare /HPF (0-5)
[2019-04-29 18:48] LABS: CALCIUM 8.9 mg/dL (8.5-10.1); CREATININE 0.9 mg/dL (0.6-1.3); POTASSIUM 4.1 mmol/L (3.5-5.1)
[2019-04-29 19:02] LABS: MAGNESIUM 1.8 mg/dL (1.8-2.4); TOTAL BILIRUBIN 0.4 mg/dL (<0.1-1.0); TOTAL PROTEIN 7.4 g/dL (6.4-8.2)
[2019-04-29 20:35] VITALS: BP 144/87
[2019-04-29 20:45] VITALS: BP 134/90
[2019-04-29 21:15] LABS: AMP/METHAMP Negative (Negative); BARBITURATES Negative (Negative); BENZODIAZEPINES Negative (Negative); COCAINE Negative (Negative); METHADONE Negative (Negative); OPIATES Negative (Negative); PCP Negative (Negative); THC Negative (Negative)
--- NOTE | 2019-04-30 05:51 | NUR ---
PATIENT ARRIVED ON FLOOR FROM ER ABOUT 2044. PATIENT ADMISSION HISTORY AND ASSESSMENT WAS COMPLETED CHARTED. IV FLUIDS WERE STARTED AT 100 ML/HR. PATIENT WAS GIVEN PAIN AND NAUSEA MEDICINE TWICE WITH GOOD RELIEF. WILL CONTINUE TO MONITOR.
[2019-04-30 07:09] VITALS: BP 152/94
--- NOTE | 2019-04-30 12:29 | NUR ---
CM COMPLETED INITIAL ASSESSMENT TO DISCUSS D/C PLANNING. PT ALERT AND CONVERSATIONAL, SITING UP IN BED. PT IS CURRENT W/[facility]. PT LIVES W/CHILDREN. RECEIVES SOME SUPPORT FROM HER SISTER. PT HAS NO PCP, CM PROVIDED PT W/RESOURCE LIST. PT HAS PUMP AT HOME FOR TUBE FEEDING. PT HAS NO HX W/SNF. CM INFORMED GERMAN AT [facility] OF PT'S HOSPITALIZATION. HH PLANS TO RESUME CARE. SEND ORDERS AT D/C. CM TO REMAIN AVAIL TO ASSIST NEEDED.
[2019-04-30 12:48] VITALS: BP 152/94
[2019-04-30] MEDS ORDERED: ZOFRAN ODT4 MG DISSOLVE (13:07)
[2019-04-30] MEDS ORDERED: COMPAZINE5 M1 PO (13:07)
[2019-04-30] MEDS ORDERED: NEURONTIN250 MG/5 M PO (13:07)
[2019-04-30] MEDS ORDERED: OSMOLITE 1.2 C237 ML PO (13:07)
[2019-04-30] MEDS ORDERED: PAIN RELIE500 MG/15 PO (13:07)
[2019-04-30] MEDS ORDERED: CARAFATE 11 GM/10 M1 PER TUBE (13:07)
[2019-04-30] MEDS ORDERED: PROMETHAZI6.25 MG/5 PO (13:07)
[2019-04-30] MEDS ORDERED: OXYCODONE H5 MG/5 ML PO (13:32)
[2019-04-30 14:20] VITALS: BP 152/94
--- NOTE | 2019-04-30 14:20 | NUR ---
PATIENT DC HOME. PRESCRIPTIONS DISCUSSED WITH PATIENT. PT VERBALIZES DISCHARGE INSTRUCTIONS AND PATIENT HAS FOLLOW UP WITH DR Vang Monday05/02/19. ALL BELONGINGS SENT WITH PATIENT. SEE ASSESSMENT AND VITALS FOR OTHER DETAILS.
--- NOTE | 2019-04-30 14:20 | NUR ---
Pt to dc home today with service to resume at ok. SW discussed with pt; pt current with [facility] and SW faxed referral and orders to resume care. Pt plans to call [facility] for ride home because she does not want to wait for her sister to be able to pick her up at or after 5 pm.
--- NOTE | 2019-04-30 14:34 | EKG ---
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
== END 2019-04-30 14:15 | disposition home health service (06) | DRG 394 ==
LOC: M.ERS 17:05 → M.TBA-ER 19:33 → M.3W 19:33
PROVIDERS: Nurse Practitioner Family; ADMIT Internal Medicine
PROC: 0D2DXUZ Change Feeding Device in Lower Intestinal Tract, External Approach (ICD-10-PCS; principal; 2019-04-30)
DX: K94.23 Gastrostomy malfunction (principal); K50.90 Crohn's disease, unspecified, without complications; F41.9 Anxiety disorder, unspecified; F32.9 Major depressive disorder, single episode, unspecified; Z87.442 Personal history of urinary calculi; Z90.49 Acquired absence of other specified parts of digestive tract; Z88.8 Allergy status to other drugs, medicaments and biological substances; Z91.041 Radiographic dye allergy status; Z87.891 Personal history of nicotine dependence

== ENCOUNTER 2019-07-12 14:28 | Emergency (ER) | payer MEDICAID ==
[~2019-07-12] VITALS: Ht 170.2 cm; Wt 57.6 kg
[~2019-07-12 14:28] MED LIST changes: +ACETAMINOPHEN650 M5 PO; +CARAFATE 11 GM/10 M1 PER TUBE; +COMPAZINE5 M1 PO; +NEURONTIN250 MG/5 M PO; +OSMOLITE 1.2 C237 ML PO; +OXYCODONE H5 MG/5 ML PO; +PAIN RELIE500 MG/15 PO; +PROMETHAZI6.25 MG/5 PO; +VITAMIN D250 MCG PO
[2019-07-12] MEDS ORDERED: MULTIVITAM9 MG/15 M1 PO (14:44)
[2019-07-12] MEDS ORDERED: BENADRYL ITCH103 ML TOP (14:46)
[2019-07-12] MEDS ORDERED: PROMETHAZINE V120 ML PO (14:48)
[2019-07-12] MEDS ORDERED: TRIAMCINOLONE A80 G2 TOP (15:13)
[2019-07-12 15:49] LABS: ABSOLUTE LYMPHOCYTES 0.9 thou/uL (0.8-5.3); ABSOLUTE MONOCYTES 0.3 thou/uL (0.0-1.2); ABSOLUTE NEUTROPHILS 3.1 thou/uL (1.6-8.1); BASOPHILS 0.8 %; EOSINOPHILS 1.1 %; HEMATOCRIT 39.9 % (37.0-47.0); HEMOGLOBIN 13.3 gm/dL (12.0-15.0); LYMPHOCYTES 20.1 %; MCH 28.5 pg (26.0-34.0); MCHC 33.3 g/dL (28.0-37.0); MCV 85.6 fL (80.0-100.0); MONOCYTES 6.1 %; MPV 9.1 fl. (7.2-11.1); NUCLEATED RBCS 0 /100WBC; PLATELET COUNT* 195 thou/uL (150-400); POLYS 71.9 %; RBC 4.66 mil/uL (4.20-5.00); RDW-CV 15.8 % (10.5-14.5); WBC 4.2 thou/uL (4.0-11.0)
[2019-07-12 15:54] LABS: CALCIUM 9.2 mg/dL (8.5-10.1); CREATININE 0.8 mg/dL (0.6-1.3); POTASSIUM 3.1 mmol/L (3.5-5.1)
[2019-07-12 16:01] LABS: TOTAL BILIRUBIN 0.8 mg/dL (<0.1-1.0); TOTAL PROTEIN 7.1 g/dL (6.4-8.2)
[2019-07-12 16:10] LABS: URINE BILIRUBIN NEGATIVE (Negative); URINE BLOOD NEGATIVE (Negative); URINE CLARITY CLEAR; URINE COLOR YELLOW; URINE GLUCOSE-RANDOM NEGATIVE (Negative); URINE KETONES NEGATIVE (Negative); URINE LEUKOCYTES-REFLEX NEGATIVE (Negative); URINE NITRITE-REFLEX NEGATIVE (Negative); URINE PROTEIN NEGATIVE (Negative); URINE SPECIFIC GRAVITY 1.015 (1.005-1.030); URINE UROBILINOGEN 0.2 E.U./dl (0.2-1.0)
[2019-07-12 16:19] LABS: AMP/METHAMP Negative (Negative); BARBITURATES Negative (Negative); BENZODIAZEPINES Negative (Negative); COCAINE Negative (Negative); METHADONE Negative (Negative); OPIATES Negative (Negative); PCP Negative (Negative); THC Negative (Negative)
[2019-07-12 17:00] LABS: ESR (SEDRATE) 2 mm/hr (0-20)
[2019-07-12] MEDS ORDERED: PRISTIQ50 MG PO (17:42)
[2019-07-12] MEDS ORDERED: XANAX 0.25 MG0.25 MG PO (17:42)
[2019-07-12] MEDS ORDERED: ORAPRED15 MG/5 ML PO (17:56)
[2019-07-12 18:27] VITALS: BP 124/75
== END 2019-07-12 18:30 | disposition home or self-care (01) ==
LOC: M.ERS 14:28
PROVIDERS: Personal Emergency Response Attendant
DX: F41.9 Anxiety disorder, unspecified (principal); R20.2 Paresthesia of skin; F32.9 Major depressive disorder, single episode, unspecified; Z90.49 Acquired absence of other specified parts of digestive tract; Z87.442 Personal history of urinary calculi; Z91.041 Radiographic dye allergy status; Z87.891 Personal history of nicotine dependence

== ENCOUNTER 2019-08-01 06:53 | Emergency (ER) | payer MEDICAID ==
[~2019-08-01] VITALS: Ht 170.2 cm; Wt 56.7 kg
[~2019-08-01 06:53] MED LIST changes: +BENADRYL ITCH103 ML TOP; +MULTIVITAM9 MG/15 M1 PO; +ORAPRED15 MG/5 ML PO; +PRISTIQ50 MG PO; +PROMETHAZINE V120 ML PO; +TRIAMCINOLONE A80 G2 TOP; +XANAX 0.25 MG0.25 MG PO
[2019-08-01] MEDS ORDERED: LOPERAMIDE 2 MG2 MG PO (07:07)
[2019-08-01] MEDS ORDERED: NORVASC 2.5 MG2.5 M1 PO (07:08)
[2019-08-01] MEDS ORDERED: VISTARIL50 MG PO (07:09)
[2019-08-01 07:30] LABS: HEMATOCRIT 39.6 % (37.0-47.0); HEMOGLOBIN 13.1 gm/dL (12.0-15.0); MCH 28.5 pg (26.0-34.0); MCV 86.2 fL (80.0-100.0); MPV 8.8 fl. (7.2-11.1); NUCLEATED RBCS 0 /100WBC; PLATELET COUNT* 205 thou/uL (150-400); RBC 4.59 mil/uL (4.20-5.00); RDW-CV 17.2 % (10.5-14.5); WBC 7.3 thou/uL (4.0-11.0)
[2019-08-01 07:34] LABS: CALCIUM 8.7 mg/dL (8.5-10.1); CREATININE 0.9 mg/dL (0.6-1.3); POTASSIUM 3.6 mmol/L (3.5-5.1)
[2019-08-01 07:50] LABS: ALBUMIN 3.8 g/dL (3.4-5.0); MAGNESIUM 2.1 mg/dL (1.8-2.4); TOTAL BILIRUBIN 0.5 mg/dL (<0.1-1.0); TOTAL PROTEIN 6.9 g/dL (6.4-8.2)
[2019-08-01 07:54] LABS: URINE BILIRUBIN NEGATIVE (Negative); URINE BLOOD TRACE (Negative); URINE CLARITY CLEAR; URINE COLOR YELLOW; URINE GLUCOSE-RANDOM NEGATIVE (Negative); URINE KETONES NEGATIVE (Negative); URINE LEUKOCYTES-REFLEX NEGATIVE (Negative); URINE NITRITE-REFLEX NEGATIVE (Negative); URINE PROTEIN NEGATIVE (Negative); URINE SPECIFIC GRAVITY 1.015 (1.005-1.030); URINE UROBILINOGEN 0.2 E.U./dl (0.2-1.0)
[2019-08-01 08:21] LABS: ABSOLUTE LYMPHOCYTES 0.7 thou/uL (0.8-5.3); ABSOLUTE NEUTROPHILS 6.6 thou/uL (1.6-8.1); PLATELET ESTIMATE ADEQUATE
--- NOTE | 2019-08-01 09:24 | EKG ---
[place] [address] ELECTROCARDIOGRAM REPORT Name: YARELI WALKER Room: [facility]#: [id number] Admission: 08/01/19 Attend Phys: Discharge: Date of : 73 Date of Service: 08/01/19 0658 Report #: [id number] THIS REPORT FOR: //name// [facility] ED Test Date: 2019-08-01 Test Time: 06:58:23 Pat Name: YARELI WALKER Department: Room: Gender: F Sap Data Architect: SANTI : 1975 Requested By: Manjit Humphries Order Number: [id number] MD: Leo Jay Measurements Intervals [place] Rate: 115 P: 77 MA: 159 QRS: 74 QRSD: 86 T: 61 QT: 326 QTc: 451 Interpretive Statements Sinus tachycardia Right atrial enlargement Baseline wander in lead(s) II,aVF Compared to ECG 04/29/2019 19:20:11 Atrial abnormality now present Sinus rate has increased Electronically Signed On 08-01-2019 9:23:05 CDT by Leo Jay [email or web address] <ELECTRONICALLY SIGNED> By: Leo Jay MD, [facility] 08/01/19 0923 0658 0658 Leo Jay MD, [facility] /EPI
[2019-08-01] MEDS ORDERED: ACYCLOVIR 200200 MG PO (10:47)
[2019-08-01 10:59] VITALS: BP 146/90
== END 2019-08-01 11:00 | disposition home or self-care (01) ==
LOC: M.ERS 06:53
PROVIDERS: Emergency Medicine Emergency Medical Services
DX: B34.9 Viral infection, unspecified (principal); K50.90 Crohn's disease, unspecified, without complications; K31.84 Gastroparesis; Z87.891 Personal history of nicotine dependence; Z91.041 Radiographic dye allergy status; Z88.8 Allergy status to other drugs, medicaments and biological substances; Z87.442 Personal history of urinary calculi; Z98.51 Tubal ligation status; Z90.49 Acquired absence of other specified parts of digestive tract

== ENCOUNTER 2019-08-07 19:46 | Inpatient (IN) | payer MEDICAID ==
[~2019-08-07] VITALS: Ht 170.2 cm; Wt 58.1 kg
[~2019-08-07 19:46] MED LIST changes: +ACYCLOVIR 200200 MG PO; +LOPERAMIDE 2 MG2 MG PO; +NORVASC 2.5 MG2.5 M1 PO; +VISTARIL50 MG PO
[2019-08-07 19:59] VITALS: BP 175/93
[2019-08-07 20:24] LABS: MPV 7.8 fl. (7.2-11.1); NUCLEATED RBCS 0 /100WBC
[2019-08-07 20:25] LABS: ABSOLUTE LYMPHOCYTES 1.3 thou/uL (0.8-5.3); ABSOLUTE MONOCYTES 0.5 thou/uL (0.0-1.2); ABSOLUTE NEUTROPHILS 5.7 thou/uL (1.6-8.1); BASOPHILS 0.5 %; EOSINOPHILS 0.3 %; HEMATOCRIT 32.8 % (37.0-47.0); LYMPHOCYTES 16.6 %; MCH 28.6 pg (26.0-34.0); MCHC 33.5 g/dL (28.0-37.0); MCV 85.5 fL (80.0-100.0); MONOCYTES 6.9 %; PLATELET COUNT* 216 thou/uL (150-400); POLYS 75.7 %; RBC 3.84 mil/uL (4.20-5.00); RDW-CV 17.2 % (10.5-14.5); WBC 7.6 thou/uL (4.0-11.0)
[2019-08-07 20:27] LABS: CALCIUM 8.4 mg/dL (8.5-10.1); CREATININE 0.8 mg/dL (0.6-1.3); POTASSIUM 3.4 mmol/L (3.5-5.1)
[2019-08-07 20:31] LABS: ALBUMIN 3.5 g/dL (3.4-5.0); TOTAL BILIRUBIN 0.7 mg/dL (<0.1-1.0); TOTAL PROTEIN 6.5 g/dL (6.4-8.2)
[2019-08-07 23:38] LABS: URINE BILIRUBIN NEGATIVE (Negative); URINE BLOOD NEGATIVE (Negative); URINE CLARITY CLEAR; URINE COLOR YELLOW; URINE GLUCOSE-RANDOM NEGATIVE (Negative); URINE KETONES NEGATIVE (Negative); URINE LEUKOCYTES-REFLEX NEGATIVE (Negative); URINE NITRITE-REFLEX NEGATIVE (Negative); URINE PROTEIN NEGATIVE (Negative); URINE SPECIFIC GRAVITY 1.015 (1.005-1.030); URINE UROBILINOGEN 0.2 E.U./dl (0.2-1.0)
[2019-08-07 23:46] LABS: AMP/METHAMP Negative (Negative); BARBITURATES Negative (Negative); BENZODIAZEPINES Negative (Negative); COCAINE Negative (Negative); METHADONE Negative (Negative); OPIATES Negative (Negative); PCP Negative (Negative); THC Negative (Negative)
[2019-08-08 02:23] VITALS: BP 166/87
[2019-08-08 02:30] VITALS: BP 122/92
[2019-08-08 08:00] VITALS: BP 126/84
[2019-08-08 12:13] VITALS: BP 107/73
[2019-08-08 16:56] VITALS: BP 112/77
[2019-08-08 20:10] VITALS: BP 112/67
[2019-08-08 21:07] LABS: COMPLEMENT-C4 22 mg/dL (14-44)
[2019-08-09] VITALS (7 sets, daily range): BP systolic 89–119; BP diastolic 51–75
[2019-08-09 05:14] LABS: ABSOLUTE EOSINOPHILS 0.1 thou/uL (0.0-0.7); ABSOLUTE LYMPHOCYTES 1.2 thou/uL (0.8-5.3); ABSOLUTE MONOCYTES 0.4 thou/uL (0.0-1.2); ABSOLUTE NEUTROPHILS 2.3 thou/uL (1.6-8.1); BASOPHILS 0.9 %; EOSINOPHILS 1.8 %; HEMATOCRIT 29.9 % (37.0-47.0); HEMOGLOBIN 9.8 gm/dL (12.0-15.0); LYMPHOCYTES 30.3 %; MCH 28.9 pg (26.0-34.0); MCHC 32.8 g/dL (28.0-37.0); MONOCYTES 9.6 %; MPV 8.2 fl. (7.2-11.1); NUCLEATED RBCS 0 /100WBC; PLATELET COUNT* 182 thou/uL (150-400); POLYS 57.4 %; RDW-CV 17.2 % (10.5-14.5)
[2019-08-09 05:39] LABS: ALBUMIN 3.4 g/dL (3.4-5.0); CALCIUM 8.2 mg/dL (8.5-10.1); CREATININE 0.7 mg/dL (0.6-1.3); TOTAL BILIRUBIN 0.5 mg/dL (<0.1-1.0); TOTAL PROTEIN 6.2 g/dL (6.4-8.2)
[2019-08-09 05:41] LABS: POTASSIUM 2.9 mmol/L (3.5-5.1)
[2019-08-09] MEDS ORDERED: PROTONIX40 M1 PO (08:45)
[2019-08-10] VITALS (8 sets, daily range): BP systolic 99–156; BP diastolic 57–104
[2019-08-10 05:11] LABS: HEMATOCRIT 24.9 % (37.0-47.0); HEMOGLOBIN 8.4 gm/dL (12.0-15.0); MCH 29.1 pg (26.0-34.0); MCHC 33.6 g/dL (28.0-37.0); MCV 86.7 fL (80.0-100.0); MPV 7.9 fl. (7.2-11.1); RBC 2.88 mil/uL (4.20-5.00); RDW-CV 16.9 % (10.5-14.5); WBC 4.2 thou/uL (4.0-11.0)
[2019-08-10] MEDS ORDERED: VISTARIL50 MG PO (12:02)
[2019-08-10] MEDS ORDERED: CARAFATE 11 GM/10 M1 PER TUBE (12:02)
== END 2019-08-10 16:45 | disposition home health service (06) | DRG 377 ==
LOC: M.ERS 19:46 → M.2W 08-08 01:05 → M.TBA-ER 08-08 01:05 → M.2W 08-08 02:06
PROVIDERS: Emergency Medicine; Internal Medicine; Internal Medicine Gastroenterology; ADMIT Internal Medicine
PROC: 0D568ZZ Destruction of Stomach, Via Natural or Artificial Opening Endoscopic (ICD-10-PCS; principal; 2019-08-08)
PROC: B54NZZA Ultrasonography of Left Upper Extremity Veins, Guidance (ICD-10-PCS; principal; 2019-08-08)
PROC: 05HY33Z Insertion of Infusion Device into Upper Vein, Percutaneous Approach (ICD-10-PCS; principal; 2019-08-08)
DX: K25.4 Chronic or unspecified gastric ulcer with hemorrhage (principal); E43 Unspecified severe protein-calorie malnutrition; K50.90 Crohn's disease, unspecified, without complications; D62 Acute posthemorrhagic anemia; E27.40 Unspecified adrenocortical insufficiency; F32.9 Major depressive disorder, single episode, unspecified; K31.84 Gastroparesis; K91.1 Postgastric surgery syndromes; F41.1 Generalized anxiety disorder; E87.6 Hypokalemia; K20.9 Esophagitis, unspecified; Z90.49 Acquired absence of other specified parts of digestive tract; Z87.442 Personal history of urinary calculi; Z88.8 Allergy status to other drugs, medicaments and biological substances; Z68.20 Body mass index [BMI] 20.0-20.9, adult; Z91.041 Radiographic dye allergy status; Z87.891 Personal history of nicotine dependence

== ENCOUNTER 2019-08-21 22:36 | Emergency (ER) | payer MEDICAID ==
[~2019-08-21] VITALS: Ht 170.2 cm; Wt 56.7 kg
[2019-08-21 23:17] LABS: URINE BILIRUBIN NEGATIVE (Negative); URINE BLOOD NEGATIVE (Negative); URINE CLARITY CLEAR; URINE COLOR YELLOW; URINE GLUCOSE-RANDOM NEGATIVE (Negative); URINE KETONES NEGATIVE (Negative); URINE LEUKOCYTES-REFLEX NEGATIVE (Negative); URINE NITRITE-REFLEX NEGATIVE (Negative); URINE PROTEIN NEGATIVE (Negative); URINE SPECIFIC GRAVITY 1.015 (1.005-1.030); URINE UROBILINOGEN 0.2 E.U./dl (0.2-1.0)
[2019-08-21 23:25] LABS: AMP/METHAMP Negative (Negative); BARBITURATES Negative (Negative); BENZODIAZEPINES Negative (Negative); COCAINE Negative (Negative); METHADONE Negative (Negative); OPIATES Negative (Negative); PCP Negative (Negative); THC Negative (Negative)
[2019-08-21 23:28] LABS: ABSOLUTE LYMPHOCYTES 2.1 thou/uL (0.8-5.3); ABSOLUTE MONOCYTES 0.4 thou/uL (0.0-1.2); ABSOLUTE NEUTROPHILS 2.9 thou/uL (1.6-8.1); BASOPHILS 0.8 %; EOSINOPHILS 0.5 %; LYMPHOCYTES 37.8 %; MCH 27.4 pg (26.0-34.0); MCHC 33.4 g/dL (28.0-37.0); MCV 82.2 fL (80.0-100.0); MONOCYTES 7.6 %; MPV 7.8 fl. (7.2-11.1); NUCLEATED RBCS 0 /100WBC; PLATELET COUNT* 335 thou/uL (150-400); POLYS 53.3 %; RBC 4.01 mil/uL (4.20-5.00); RDW-CV 17.4 % (10.5-14.5); WBC 5.5 thou/uL (4.0-11.0)
[2019-08-21 23:36] LABS: CALCIUM 8.2 mg/dL (8.5-10.1); POTASSIUM 3.4 mmol/L (3.5-5.1)
[2019-08-21 23:40] LABS: ALBUMIN 3.5 g/dL (3.4-5.0); TOTAL BILIRUBIN 0.6 mg/dL (<0.1-1.0); TOTAL PROTEIN 6.5 g/dL (6.4-8.2)
[2019-08-22] MEDS ORDERED: KLONOPIN0.5 MG PO (00:27)
[2019-08-22] MEDS ORDERED: ZOFRAN ODT4 MG PO (00:47)
[2019-08-22] MEDS ORDERED: CARAFATE 1 GM TA1 GM PO (00:47)
[2019-08-22 01:16] VITALS: BP 127/67
== END 2019-08-22 01:17 | disposition home or self-care (01) ==
LOC: M.ERS 22:36
PROVIDERS: Personal Emergency Response Attendant
DX: R10.84 Generalized abdominal pain (principal); R11.2 Nausea with vomiting, unspecified; G89.29 Other chronic pain; K50.90 Crohn's disease, unspecified, without complications; F32.9 Major depressive disorder, single episode, unspecified; F41.9 Anxiety disorder, unspecified; Z98.51 Tubal ligation status; Z87.442 Personal history of urinary calculi; Z90.49 Acquired absence of other specified parts of digestive tract; Z87.891 Personal history of nicotine dependence; Z91.041 Radiographic dye allergy status; Z91.048 Other nonmedicinal substance allergy status; Z88.8 Allergy status to other drugs, medicaments and biological substances

== ENCOUNTER 2019-09-14 14:45 | Emergency (ER) | payer MEDICAID ==
[~2019-09-14] VITALS: Ht 170.2 cm; Wt 56.7 kg
[~2019-09-14 14:45] MED LIST changes: +CARAFATE 1 GM TA1 GM PO; +KLONOPIN0.5 MG PO
[2019-09-14] MEDS ORDERED: CEFDINIR300 MG PO (16:07)
[2019-09-14] MEDS ORDERED: ONDANSETRON ODT8 MG PO (16:07)
[2019-09-14] MEDS ORDERED: NORCO 5-325 TA1 EAC1 PO (16:07)
[2019-09-14 16:18] VITALS: BP 133/82
== END 2019-09-14 16:20 | disposition home or self-care (01) ==
LOC: M.ERS 14:45
DX: H66.92 Otitis media, unspecified, left ear (principal); R11.2 Nausea with vomiting, unspecified; K50.90 Crohn's disease, unspecified, without complications; F41.9 Anxiety disorder, unspecified; F32.9 Major depressive disorder, single episode, unspecified; Z76.0 Encounter for issue of repeat prescription; Z98.51 Tubal ligation status; Z87.442 Personal history of urinary calculi; Z90.49 Acquired absence of other specified parts of digestive tract; Z87.891 Personal history of nicotine dependence; Z91.041 Radiographic dye allergy status; Z88.8 Allergy status to other drugs, medicaments and biological substances

== ENCOUNTER 2019-11-14 10:29 | Inpatient (IN) | payer MEDICAID ==
[~2019-11-14] VITALS: Ht 170.2 cm; Wt 54.4 kg
[2019-11-14] MEDS ORDERED: LOPERAMIDE2 MG PO (10:37)
[2019-11-14] MEDS ORDERED: CARAFATE1 GM/10 ML PO (10:38)
[2019-11-14 10:40] VITALS: BP 158/80
[2019-11-14 11:25] LABS: CALCIUM 8.7 mg/dL (8.5-10.1); CREATININE 0.9 mg/dL (0.6-1.3); POTASSIUM 4.2 mmol/L (3.5-5.1)
[2019-11-14 11:29] LABS: ALBUMIN 3.9 g/dL (3.4-5.0); MAGNESIUM 1.6 mg/dL (1.8-2.4); TOTAL BILIRUBIN 0.7 mg/dL (<0.1-1.0); TOTAL PROTEIN 7.2 g/dL (6.4-8.2)
[2019-11-14 11:40] LABS: BE -2.3 mmol/L (-2 to +3); PCO2 34.6 mmHg (35.0-45.0); PO2 94.9 mmHg (75.0-100.0); pH 7.416 (7.340-7.450)
[2019-11-14 11:57] LABS: HEMATOCRIT 32.5 % (37.0-47.0); HEMOGLOBIN 10.5 gm/dL (12.0-15.0); MCHC 32.3 g/dL (28.0-37.0); MCV 77.3 fL (80.0-100.0); MPV 8.3 fl. (7.2-11.1); NUCLEATED RBCS 0 /100WBC; PLATELET COUNT* 155 thou/uL (150-400); RBC 4.21 mil/uL (4.20-5.00); RDW-CV 16.3 % (10.5-14.5)
[2019-11-14 12:31] LABS: ABSOLUTE BASOPHILS 0.1 thou/uL (0.0-0.2); ABSOLUTE EOSINOPHILS 0.1 thou/uL (0.0-0.7); ABSOLUTE LYMPHOCYTES 0.4 thou/uL (0.8-5.3); ABSOLUTE MONOCYTES 0.1 thou/uL (0.0-1.2); ABSOLUTE NEUTROPHILS 6.4 thou/uL (1.6-8.1); ANISOCYTOSIS Occasional; HYPOCHROMASIA 2+; MICROCYTES Occasional; PLATELET ESTIMATE ADEQUATE
[2019-11-14 14:57] LABS: AMYLASE 19 U/L (25-115); LIPASE 288 U/L (73-393)
[2019-11-14 15:01] LABS: URINE BILIRUBIN NEGATIVE (Negative); URINE BLOOD NEGATIVE (Negative); URINE CLARITY CLEAR; URINE COLOR YELLOW; URINE GLUCOSE-RANDOM NEGATIVE (Negative); URINE KETONES TRACE (Negative); URINE LEUKOCYTES-REFLEX NEGATIVE (Negative); URINE PROTEIN NEGATIVE (Negative); URINE UROBILINOGEN 0.2 E.U./dl (0.2-1.0)
[2019-11-14 15:03] LABS: URINE NITRITE-REFLEX POSITIVE (Negative)
[2019-11-14 15:14] LABS: SQUAMOUS >10 Many /LPF (0-3)
[2019-11-14 15:15] LABS: BACTERIA-REFLEX >30 Many /HPF (None Seen); CASTS None Seen /LPF (None Seen); CRYSTALS None Seen /LPF (None Seen); URINE RBC 0-2 Rare /HPF (0-2); URINE WBC-REFLEX 0-5 Rare /HPF (0-5)
--- NOTE | 2019-11-14 17:19 | EKG ---
[place] [address] ELECTROCARDIOGRAM REPORT Name: YARELI WALKER Room: [address] M[address]R.#: [id number] Admission: 11/14/19 Attend Phys: Matt Mckee Discharge: Date of : 73 Date of Service: 11/14/19 1040 Report #: [id number] THIS REPORT FOR: //name// [facility] ED Test Date: 2019-11-14 Test Time: 10:40:32 Pat Name: YARELI WALKER Department: Room: [place] [address] Gender: F It Programmer: ALTAGRACIA : 1975 Requested By: Lindsay Meraz Order Number: [id number] MD: Michael Harding Measurements Intervals [place] Rate: 126 P: 79 [place]: 146 QRS: 71 QRSD: 87 T: 55 QT: 320 QTc: 464 Interpretive Statements Sinus tachycardia Right atrial enlargement possible Minimal ST depression, inferior leads Baseline wander in lead(s) II Compared to ECG 08/01/2019 06:58:23 ST (T wave) deviation now present Electronically Signed On 11-14-2019 17:18:57 CDT by Michael Harding [email or web address] <ELECTRONICALLY SIGNED> By: Michael Harding MD, FACC 11/14/19 1718 1040 1040 Michael Harding MD, [facility] /EPI
[2019-11-14 19:01] VITALS: BP 151/87
[2019-11-14 20:00] VITALS: BP 139/93
[2019-11-15 09:34] VITALS: BP 130/74
[2019-11-15 10:07] LABS: ABSOLUTE MONOCYTES 0.2 thou/uL (0.0-1.2); ABSOLUTE NEUTROPHILS 1.2 thou/uL (1.6-8.1); BASOPHILS 0.9 %; EOSINOPHILS 1.1 %; HEMOGLOBIN 10.2 gm/dL (12.0-15.0); LYMPHOCYTES 40.2 %; MCH 24.5 pg (26.0-34.0); MCHC 31.8 g/dL (28.0-37.0); MCV 77.1 fL (80.0-100.0); MPV 8.9 fl. (7.2-11.1); NUCLEATED RBCS 0 /100WBC; PLATELET COUNT* 135 thou/uL (150-400); POLYS 49.8 %; RBC 4.15 mil/uL (4.20-5.00); RDW-CV 16.4 % (10.5-14.5); WBC 2.4 thou/uL (4.0-11.0)
[2019-11-15 10:51] LABS: % SATURATION 47 % (20-39); IRON 149 ug/dL (50-175)
[2019-11-15 14:07] LABS: ANA INTERPRETATION Negative (Negative)
[2019-11-15 20:00] VITALS: BP 152/94
[2019-11-16 06:07] LABS: HEPATITIS B SURFACE AG Negative (Negative)
[2019-11-16 08:05] VITALS: BP 144/93
[2019-11-16 13:03] LABS: ABSOLUTE EOSINOPHILS 0.1 thou/uL (0.0-0.7); ABSOLUTE LYMPHOCYTES 1.1 thou/uL (0.8-5.3); ABSOLUTE MONOCYTES 0.3 thou/uL (0.0-1.2); ABSOLUTE NEUTROPHILS 2.2 thou/uL (1.6-8.1); BASOPHILS 0.6 %; EOSINOPHILS 2.3 %; HEMATOCRIT 32.6 % (37.0-47.0); HEMOGLOBIN 10.5 gm/dL (12.0-15.0); LYMPHOCYTES 29.2 %; MCH 25.2 pg (26.0-34.0); MCHC 32.2 g/dL (28.0-37.0); MONOCYTES 7.3 %; MPV 8.4 fl. (7.2-11.1); NUCLEATED RBCS 0 /100WBC; PLATELET COUNT* 134 thou/uL (150-400); POLYS 60.6 %; RBC 4.18 mil/uL (4.20-5.00); RDW-CV 16.2 % (10.5-14.5); WBC 3.7 thou/uL (4.0-11.0)
[2019-11-16 13:15] LABS: ALBUMIN 3.6 g/dL (3.4-5.0); CALCIUM 8.1 mg/dL (8.5-10.1); CREATININE 0.8 mg/dL (0.6-1.3); TOTAL BILIRUBIN 0.6 mg/dL (<0.1-1.0); TOTAL PROTEIN 6.7 g/dL (6.4-8.2)
[2019-11-16 13:16] LABS: POTASSIUM 2.8 mmol/L (3.5-5.1)
[2019-11-16 17:56] LABS: MAGNESIUM 1.6 mg/dL (1.8-2.4)
[2019-11-16 20:00] VITALS: BP 153/85
[2019-11-17 08:21] VITALS: BP 117/87
[2019-11-17 19:50] VITALS: BP 135/67
[2019-11-18 07:35] VITALS: BP 139/89
[2019-11-18] MEDS ORDERED: PREVALITE PACKET4 GM PO (09:29)
[2019-11-18] MEDS ORDERED: PANCRELIPASE PO (09:29)
[2019-11-18] MEDS ORDERED: ALPRAZOLAM0.5 M2 PO (09:29)
[2019-11-18] MEDS ORDERED: OXYCODONE HCL 55 MG PO (09:29)
[2019-11-18 10:36] VITALS: BP 139/89
[2019-11-18 13:05] VITALS: BP 139/89
== END 2019-11-18 13:06 | disposition home or self-care (01) | DRG 378 ==
LOC: M.ERS 10:29 → M.ORTHSURG 15:21 → M.TBA-ER 15:21 → M.ORTHSURG 19:17
PROVIDERS: Personal Emergency Response Attendant; ADMIT Internal Medicine; ATTEND Internal Medicine
DX: K92.2 Gastrointestinal hemorrhage, unspecified (principal); K50.90 Crohn's disease, unspecified, without complications; E34.0 Carcinoid syndrome; F41.9 Anxiety disorder, unspecified; F32.9 Major depressive disorder, single episode, unspecified; K31.84 Gastroparesis; K91.1 Postgastric surgery syndromes; K86.89 Other specified diseases of pancreas; D50.9 Iron deficiency anemia, unspecified; F41.1 Generalized anxiety disorder; L30.8 Other specified dermatitis; Z20.828 Contact with and (suspected) exposure to other viral communicable diseases; Z87.442 Personal history of urinary calculi; Z90.49 Acquired absence of other specified parts of digestive tract; Z88.8 Allergy status to other drugs, medicaments and biological substances; Z91.041 Radiographic dye allergy status; Z87.891 Personal history of nicotine dependence; Z87.11 Personal history of peptic ulcer disease

== ENCOUNTER 2019-11-23 15:40 | Emergency (ER) | payer MEDICAID ==
[~2019-11-23] VITALS: Ht 172.7 cm; Wt 59.0 kg
[~2019-11-23 15:40] MED LIST changes: +ALPRAZOLAM0.5 M2 PO; +LOPERAMIDE2 MG PO; +OXYCODONE HCL 55 MG PO; +PANCRELIPASE PO; +PREVALITE PACKET4 GM PO
[2019-11-23 15:56] LABS: URINE BILIRUBIN NEGATIVE (Negative); URINE BLOOD NEGATIVE (Negative); URINE CLARITY CLEAR; URINE COLOR YELLOW; URINE GLUCOSE-RANDOM NEGATIVE (Negative); URINE KETONES NEGATIVE (Negative); URINE LEUKOCYTES-REFLEX NEGATIVE (Negative); URINE NITRITE-REFLEX NEGATIVE (Negative); URINE PROTEIN NEGATIVE (Negative); URINE SPECIFIC GRAVITY <= 1.005 (1.005-1.030); URINE UROBILINOGEN 0.2 E.U./dl (0.2-1.0)
[2019-11-23 16:02] LABS: ABSOLUTE MONOCYTES 0.2 thou/uL (0.0-1.2); ABSOLUTE NEUTROPHILS 1.4 thou/uL (1.6-8.1); EOSINOPHILS 0.4 %; HEMATOCRIT 36.7 % (37.0-47.0); HEMOGLOBIN 11.7 gm/dL (12.0-15.0); LYMPHOCYTES 54.7 %; MCHC 31.9 g/dL (28.0-37.0); MCV 78.3 fL (80.0-100.0); MONOCYTES 6.3 %; MPV 7.8 fl. (7.2-11.1); NUCLEATED RBCS 0 /100WBC; PLATELET COUNT* 192 thou/uL (150-400); POLYS 37.6 %; RBC 4.69 mil/uL (4.20-5.00); WBC 3.7 thou/uL (4.0-11.0)
[2019-11-23 16:04] LABS: AMP/METHAMP Negative (Negative); BARBITURATES Negative (Negative); BENZODIAZEPINES Negative (Negative); COCAINE Negative (Negative); METHADONE Negative (Negative); OPIATES Negative (Negative); PCP Negative (Negative); THC Negative (Negative)
[2019-11-23 16:13] LABS: CALCIUM 8.3 mg/dL (8.5-10.1); CREATININE 0.9 mg/dL (0.6-1.3)
[2019-11-23 16:18] LABS: ALBUMIN 3.6 g/dL (3.4-5.0); TOTAL BILIRUBIN 0.4 mg/dL (<0.1-1.0); TOTAL PROTEIN 6.9 g/dL (6.4-8.2)
[2019-11-23 16:27] LABS: SALICYLATE < 2.8 mg/dL (2.8-20.0)
[2019-11-23 16:28] LABS: ACETAMINOPHEN < 2 ug/mL (10-30)
[2019-11-23 16:29] LABS: ALCOHOL 431 mg/dL (<10)
[2019-11-24 00:11] VITALS: BP 155/93
--- NOTE | 2019-11-24 14:13 | EKG ---
[place] [address] ELECTROCARDIOGRAM REPORT Name: YARELI WALKER Room: [facility]#: [id number] Admission: 11/23/19 Attend Phys: Discharge: 11/24/19 Date of : 73 Date of Service: 11/23/19 1553 Report #: [id number] THIS REPORT FOR: //name// [facility] ED Test Date: 2019-11-23 Test Time: 15:53:04 Pat Name: YARELI WALKER Department: Room: Gender: F Liquor Maker: MARTHA : 1975 Requested By: Manjit Humphries Order Number: [id number] MD: Denton Luciano Measurements Intervals [place] Rate: 108 P: 67 MA: 167 QRS: 71 QRSD: 93 T: 53 QT: 340 QTc: 456 Interpretive Statements Sinus tachycardia Compared to ECG 11/14/2019 10:40:32 ST (T wave) deviation no longer present Electronically Signed On 11-24-2019 14:12:54 CDT by Denton Luciano [email or web address] <ELECTRONICALLY SIGNED> By: Denton Luciano MD, [facility] 11/24/19 1412 1553 1553 Denton Luciano MD, [facility] /EPI
== END 2019-11-24 00:11 | disposition home or self-care (01) ==
LOC: M.ERS 15:40
PROVIDERS: Emergency Medicine Emergency Medical Services
DX: F10.129 Alcohol abuse with intoxication, unspecified (principal); Y90.8 Blood alcohol level of 240 mg/100 ml or more; R41.82 Altered mental status, unspecified; K50.90 Crohn's disease, unspecified, without complications; F41.9 Anxiety disorder, unspecified; F32.9 Major depressive disorder, single episode, unspecified; K31.84 Gastroparesis; Z91.041 Radiographic dye allergy status; Z88.8 Allergy status to other drugs, medicaments and biological substances; Z98.51 Tubal ligation status; Z87.442 Personal history of urinary calculi; Z90.49 Acquired absence of other specified parts of digestive tract; Z79.899 Other long term (current) drug therapy; Z20.828 Contact with and (suspected) exposure to other viral communicable diseases

== ENCOUNTER 2019-12-24 14:55 | Emergency (ER) | payer MEDICAID ==
[~2019-12-24] VITALS: Ht 165.1 cm; Wt 49.9 kg
[2019-12-24 15:17] LABS: HEMATOCRIT 33.9 % (37.0-47.0); HEMOGLOBIN 10.7 gm/dL (12.0-15.0); MCH 24.7 pg (26.0-34.0); MCHC 31.5 g/dL (28.0-37.0); MCV 78.2 fL (80.0-100.0); MPV 7.8 fl. (7.2-11.1); RBC 4.33 mil/uL (4.20-5.00); RDW-CV 17.7 % (10.5-14.5); WBC 7.7 thou/uL (4.0-11.0)
[2019-12-24 15:26] LABS: CALCIUM 8.1 mg/dL (8.5-10.1); CREATININE 1.1 mg/dL (0.6-1.3); POTASSIUM 3.1 mmol/L (3.5-5.1)
[2019-12-24 15:29] LABS: URINE BILIRUBIN NEGATIVE (Negative); URINE BLOOD TRACE (Negative); URINE CLARITY CLEAR; URINE COLOR YELLOW; URINE GLUCOSE-RANDOM NEGATIVE (Negative); URINE KETONES NEGATIVE (Negative); URINE LEUKOCYTES NEGATIVE (Negative); URINE NITRITE NEGATIVE (Negative); URINE PROTEIN NEGATIVE (Negative); URINE SPECIFIC GRAVITY <= 1.005 (1.005-1.030); URINE UROBILINOGEN 0.2 E.U./dl (0.2-1.0)
[2019-12-24 15:31] LABS: TOTAL BILIRUBIN 0.2 mg/dL (<0.1-1.0); TOTAL PROTEIN 7.4 g/dL (6.4-8.2)
[2019-12-24 15:39] LABS: ACETAMINOPHEN 8 ug/mL (10-30); ALCOHOL 311 mg/dL (<10); SALICYLATE < 2.8 mg/dL (2.8-20.0)
[2019-12-24 15:42] LABS: AMP/METHAMP Negative (Negative); BARBITURATES Negative (Negative); BENZODIAZEPINES Negative (Negative); COCAINE Negative (Negative); METHADONE Negative (Negative); OPIATES Negative (Negative); PCP Negative (Negative); THC Negative (Negative)
[2019-12-25 01:15] VITALS: BP 123/69
--- NOTE | 2019-12-25 13:23 | EKG ---
[place] [address] ELECTROCARDIOGRAM REPORT Name: YARELI WALKER Room: [facility]#: [id number] Admission: 12/24/19 Attend Phys: Discharge: 12/25/19 Date of : 73 Date of Service: 12/24/19 1519 Report #: [id number] THIS REPORT FOR: //name// [facility] ED Test Date: 2019-12-24 Test Time: 15:19:57 Pat Name: YARELI WALKER Department: Room: Gender: F Automation Operator: [facility] : 1975 Requested By: Lindsay Meraz Order Number: [id number] MD: Denton Luciano Measurements Intervals [place] Rate: 102 P: 81 [place]: 172 QRS: 76 QRSD: 98 T: 35 QT: 369 QTc: 481 Interpretive Statements Sinus tachycardia Borderline repolarization abnormality Borderline prolonged QT interval Baseline wander in lead(s) II,III,aVR,aVL,aVF Compared to ECG 11/23/2019 15:53:04 No significant changes Electronically Signed On 12-25-2019 13:23:49 CDT by Denton Luciano [email or web address] <ELECTRONICALLY SIGNED> By: Denton Luciano MD, [facility] 12/25/19 1323 1519 1519 Denton Luciano MD, [facility] /EPI
== END 2019-12-25 01:15 | disposition home or self-care (01) ==
LOC: M.ERS 14:55
PROVIDERS: Personal Emergency Response Attendant
DX: S92.421A Displaced fracture of distal phalanx of right great toe, initial encounter for closed fracture (principal); Z20.828 Contact with and (suspected) exposure to other viral communicable diseases; F10.129 Alcohol abuse with intoxication, unspecified; Z87.891 Personal history of nicotine dependence; Z88.6 Allergy status to analgesic agent; Z91.041 Radiographic dye allergy status; Z79.899 Other long term (current) drug therapy; Z87.442 Personal history of urinary calculi; Z90.49 Acquired absence of other specified parts of digestive tract; W18.30XA Fall on same level, unspecified, initial encounter; Y93.89 Activity, other specified; Y92.89 Other specified places as the place of occurrence of the external cause; Y99.9 Unspecified external cause status; Y90.9 Presence of alcohol in blood, level not specified

== ENCOUNTER 2020-03-11 12:00 | Emergency (ER) | payer MEDICAID ==
[~2020-03-11] VITALS: Ht 170.2 cm; Wt 59.9 kg
[2020-03-11 12:50] LABS: INFLUENZA A ANTIGEN Negative (Negative); INFLUENZA B ANTIGEN Negative (Negative)
[2020-03-11 12:53] LABS: URINE BILIRUBIN NEGATIVE (Negative); URINE BLOOD TRACE (Negative); URINE CLARITY CLEAR; URINE COLOR YELLOW; URINE GLUCOSE-RANDOM NEGATIVE (Negative); URINE KETONES NEGATIVE (Negative); URINE LEUKOCYTES-REFLEX TRACE (Negative); URINE NITRITE-REFLEX NEGATIVE (Negative); URINE PROTEIN 1+ (Negative); URINE UROBILINOGEN 0.2 E.U./dl (0.2-1.0)
[2020-03-11 13:00] LABS: AMP/METHAMP Negative (Negative); BARBITURATES Negative (Negative); BENZODIAZEPINES POSITIVE (Negative); COCAINE Negative (Negative); METHADONE Negative (Negative); OPIATES Negative (Negative); PCP Negative (Negative); THC Negative (Negative)
[2020-03-11 13:21] LABS: ABSOLUTE EOSINOPHILS 0.1 thou/uL (0.0-0.7); ABSOLUTE MONOCYTES 0.4 thou/uL (0.0-1.2); ABSOLUTE NEUTROPHILS 3.8 thou/uL (1.6-8.1); BASOPHILS 0.7 %; HEMATOCRIT 37.5 % (37.0-47.0); HEMOGLOBIN 11.9 gm/dL (12.0-15.0); LYMPHOCYTES 18.1 %; MCH 24.3 pg (26.0-34.0); MCHC 31.6 g/dL (28.0-37.0); MCV 76.9 fL (80.0-100.0); MONOCYTES 8.4 %; MPV 7.4 fl. (7.2-11.1); NUCLEATED RBCS 0 /100WBC; PLATELET COUNT* 192 thou/uL (150-400); POLYS 71.8 %; RBC 4.88 mil/uL (4.20-5.00); RDW-CV 18.4 % (10.5-14.5); WBC 5.3 thou/uL (4.0-11.0)
[2020-03-11 13:31] LABS: BACTERIA-REFLEX 1-9 Few /HPF (None Seen); CRYSTALS None Seen /LPF (None Seen); HYALINE CASTS 4-10 Moderate /LPF (None Seen); MUCUS 4-6 Moderate strn/LPF (None Seen); SQUAMOUS >10 Many /LPF (0-3); URINE RBC 0-2 Rare /HPF (0-2); URINE WBC-REFLEX 0-5 Rare /HPF (0-5)
[2020-03-11 13:32] LABS: APTT 26.5 Seconds (25.0-31.3)
[2020-03-11 13:33] LABS: CALCIUM 8.4 mg/dL (8.5-10.1); CREATININE 0.8 mg/dL (0.6-1.3)
[2020-03-11 13:34] LABS: POTASSIUM 2.9 mmol/L (3.5-5.1)
[2020-03-11 13:36] LABS: ALBUMIN 3.5 g/dL (3.4-5.0); TOTAL BILIRUBIN 0.6 mg/dL (<0.1-1.0); TOTAL PROTEIN 7.3 g/dL (6.4-8.2)
[2020-03-11] MEDS ORDERED: ONDANSETRON ODT8 MG PO (15:31)
--- NOTE | 2020-03-11 15:37 | EKG ---
[place] [address] ELECTROCARDIOGRAM REPORT Name: YARELI WALKER Room: [facility]#: [id number] Admission: 03/11/20 Attend Phys: Discharge: Date of : 73 Date of Service: 03/11/20 1303 Report #: [id number] THIS REPORT FOR: //name// [facility] ED Test Date: 2020-03-11 Test Time: 13:03:51 Pat Name: YARELI WALKER Department: Room: Gender: Environmental Restoration Planner[facility] 1975 Requested By: Adina Womack Order Number: [id number] MD: Leo Jay Measurements Intervals [place] Rate: 102 P: 80 [place]: 206 QRS: 73 QRSD: 85 T: 61 QT: 353 QTc: 460 Interpretive Statements Sinus tachycardia LAE, consider biatrial enlargement Compared to ECG 12/24/2019 15:19:57 No significant changes Electronically Signed On 03-11-2020 15:37:32 ARTIST'S REPRESENTATIVE by Leo Jay [email or web address] <ELECTRONICALLY SIGNED> By: Leo Jay MD, [facility] 03/11/20 1537 1303 1303 Leo Jay MD, FACC /EPI
[2020-03-11 16:30] VITALS: BP 124/83
== END 2020-03-11 16:36 | disposition home or self-care (01) ==
LOC: M.ERS 12:00
PROVIDERS: Nurse Practitioner Family
DX: E87.6 Hypokalemia (principal); Z20.828 Contact with and (suspected) exposure to other viral communicable diseases; R11.2 Nausea with vomiting, unspecified; R10.9 Unspecified abdominal pain; B34.9 Viral infection, unspecified; Z98.84 Bariatric surgery status; Z98.51 Tubal ligation status; Z87.442 Personal history of urinary calculi; Z90.49 Acquired absence of other specified parts of digestive tract; Z79.899 Other long term (current) drug therapy; Z88.8 Allergy status to other drugs, medicaments and biological substances; Z87.891 Personal history of nicotine dependence

== ENCOUNTER 2020-04-17 05:44 | Inpatient (IN) | payer MEDICAID ==
[~2020-04-17] VITALS: Ht 170.2 cm; Wt 66.7 kg
[2020-04-17 05:55] VITALS: BP 131/89
[2020-04-17 06:14] LABS: ABSOLUTE LYMPHOCYTES 1.1 thou/uL (0.8-5.3); ABSOLUTE MONOCYTES 0.3 thou/uL (0.0-1.2); ABSOLUTE NEUTROPHILS 3.8 thou/uL (1.6-8.1); BASOPHILS 0.9 %; EOSINOPHILS 0.1 %; HEMATOCRIT 35.6 % (37.0-47.0); HEMOGLOBIN 11.2 gm/dL (12.0-15.0); LYMPHOCYTES 20.9 %; MCH 25.4 pg (26.0-34.0); MCHC 31.5 g/dL (28.0-37.0); MCV 80.5 fL (80.0-100.0); MONOCYTES 6.4 %; MPV 7.5 fl. (7.2-11.1); NUCLEATED RBCS 0 /100WBC; PLATELET COUNT* 241 thou/uL (150-400); POLYS 71.7 %; RBC 4.43 mil/uL (4.20-5.00); RDW-CV 21.7 % (10.5-14.5); WBC 5.2 thou/uL (4.0-11.0)
[2020-04-17 06:26] LABS: INR 0.9
[2020-04-17 06:34] LABS: CALCIUM 8.2 mg/dL (8.5-10.1); CREATININE 0.7 mg/dL (0.6-1.3); POTASSIUM 3.7 mmol/L (3.5-5.1)
[2020-04-17 06:39] LABS: BE 0.3 mmol/L (-2 to +3); PCO2 VENOUS 31.2 mmHg (41.0-51.0); PO2 VENOUS 93.6 mmHg (35.0-45.0)
[2020-04-17 06:44] LABS: TOTAL BILIRUBIN 0.1 mg/dL (<0.1-1.0); TOTAL PROTEIN 6.1 g/dL (6.4-8.2)
[2020-04-17] MEDS ORDERED: CREON DR 12,001 EACH PER TUBE (07:45)
[2020-04-17 07:46] LABS: URINE BILIRUBIN NEGATIVE (Negative); URINE BLOOD NEGATIVE (Negative); URINE CLARITY CLEAR; URINE COLOR YELLOW; URINE GLUCOSE-RANDOM NEGATIVE (Negative); URINE KETONES NEGATIVE (Negative); URINE LEUKOCYTES-REFLEX NEGATIVE (Negative); URINE NITRITE-REFLEX NEGATIVE (Negative); URINE PROTEIN NEGATIVE (Negative); URINE SPECIFIC GRAVITY <= 1.005 (1.005-1.030); URINE UROBILINOGEN 0.2 E.U./dl (0.2-1.0)
[2020-04-17] MEDS ORDERED: TRANSDERM-SCOP1 EACH TRANSLING (07:46)
[2020-04-17 08:14] LABS: AMP/METHAMP Negative (Negative); BARBITURATES Negative (Negative); BENZODIAZEPINES Negative (Negative); COCAINE Negative (Negative); METHADONE Negative (Negative); OPIATES Negative (Negative); PCP Negative (Negative); THC Negative (Negative)
--- NOTE | 2020-04-17 13:16 | NUR ---
REPORT GIVEN TO JT HAYS. PT TAKEN TO ROOM 215 VIA CART
--- NOTE | 2020-04-17 13:22 | NUR ---
Nutrition: Pt's usual tube feeding regimen listed as Osmolite x 14 hrs daily. Unsure of rate and would clarify with pt when ok to start tube feeds. RD may suggest consideration of Vital AF formula alternatively considering Hx J tube, Hilary N Y and dumping hx/chronic diarrhea. This is elemental formula and may be better tolerated. If change ok with pt suggest 1 liter Vital AF to run overnight x 14 hrs.
[2020-04-17 13:23] VITALS: BP 120/67
--- NOTE | 2020-04-17 14:25 | NUR ---
RECIEVED REPORT FROM SAÚL YEN. PT TRANSFERRED FROM ICU TO TELE. ARRIVED ON UNIT AT 1320. PT UP ADLIB. IV'S INTACT. HEART MONITOR ATTACHED AT SR/ST. PT IS ALERT AND ORIENTED. TREMORS PRESENT. PEG TUBE INTACT. PT ABLE TO WALK WITHOUT ASSISTANCE. PT LYING IN BED CURRENTLY. MEDS GIVEN PER JUN. CWAW PROTOCOL IN PLACE. ORIENTED TO NEW ROOM. CALL LIGHT WITHIN REACH. WILL CONTINUE TO MONITOR.
[2020-04-17 16:44] VITALS: BP 83/38
--- NOTE | 2020-04-17 18:46 | NUR ---
NO NEW CHANGES. NO TREMORS PRESENT CURRENTLY. MEDS GIVEN PER JUN. IV'S INTACT. HEART MONITOTR ATTACHED AT . PT LYING IN BED. HOURLY ROUNDING PERFORMED. CALL LIGHT WITHIN REACH. WILL CONTINUE TO MONITOR.
[2020-04-17 20:30] VITALS: BP 138/92
[2020-04-17 23:55] VITALS: BP 132/83
[2020-04-18 03:38] LABS: HEMATOCRIT 32.7 % (37.0-47.0); HEMOGLOBIN 10.7 gm/dL (12.0-15.0); MCH 25.9 pg (26.0-34.0); MCHC 32.7 g/dL (28.0-37.0); MCV 79.1 fL (80.0-100.0); MPV 7.5 fl. (7.2-11.1); RBC 4.13 mil/uL (4.20-5.00); RDW-CV 21.5 % (10.5-14.5); WBC 4.8 thou/uL (4.0-11.0)
[2020-04-18 04:00] VITALS: BP 145/80
[2020-04-18 04:04] LABS: ALBUMIN 2.8 g/dL (3.4-5.0); CALCIUM 8.2 mg/dL (8.5-10.1); CREATININE 0.6 mg/dL (0.6-1.3); MAGNESIUM 2.6 mg/dL (1.8-2.4); POTASSIUM 4.5 mmol/L (3.5-5.1); TOTAL BILIRUBIN 0.5 mg/dL (<0.1-1.0); TOTAL PROTEIN 5.8 g/dL (6.4-8.2)
--- NOTE | 2020-04-18 06:20 | NUR ---
ASSUMED CARE OF PATIENT AT 1930. PATIENT RESTLESS THROUGH NOC. REQUESTING MORPHINE AND ATIVAN APPROXIMATELY EVERY 2-3 HOURS. EDUCATED PATIENT ON MEDICATION AND ADMINISTRATION TIMES. 0400 CIWA SCORE AN 8 DUE TO VISIBLE TREMORS AND REPORTS OF NAUSEA. PATIENT C/O ABD PAIN 8/10 WITH MINIMAL RELIEF FROM PAIN MEDICATION HOWEVER PATIENT WAS OBSERVED CONTSTANTLY WALKING IN ROOM WELL TO BATHROOM WITHOUT APPEARING TO BE IN DISTRESS.
[2020-04-18 08:00] VITALS: BP 133/86
--- NOTE | 2020-04-18 09:37 | EKG ---
[place] [address] ELECTROCARDIOGRAM REPORT Name: YARELI WALKER Room: [address] ADM IN ..#: [id number] Admission: 04/17/20 Attend Phys: Aramis Ibrahim Discharge: Date of : 73 Date of Service: 04/17/20 0639 Report #: [id number] THIS REPORT FOR: //name// [facility] ED Test Date: 2020-04-17 Test Time: 06:39:12 Pat Name: YARELI WALKER Department: Room: [facility] Gender: F Financial Officer: [facility] : 1975 Requested By: Jackie Garcia Order Number: [id number] MD: Denton Luciano Measurements Intervals [place] Rate: 119 P: 66 [place]: 163 QRS: 70 QRSD: 94 T: 23 QT: 350 QTc: 493 Interpretive Statements Sinus tachycardia Borderline prolonged QT interval Artifact in lead(s) II,aVR,aVF,V1,V2,V3,V4 Compared to ECG 03/11/2020 13:03:51 No significant changes Electronically Signed On 04-18-2020 9:37:13 FOUNDRY PROCESS ENGINEER by Denton Luciano [email or web address] <ELECTRONICALLY SIGNED> By: Denton Luciano MD, [facility] 04/18/20 0937 Denton Luciano MD, [facility] /EPI
--- NOTE | 2020-04-18 10:07 | NUR ---
CM SPOKE TO THE PT TO DISCUSS CM ASSESSMENT. PT A&0 INDEPENDENT WITH ADL'S, AND ACTIVE. PT RESIDES AT HOME WITH HER CHILDREN. PT INFORMS THAT HER SISTER ASSIST HER AT TIMES, BUT HAS 'LITTLE SUPPORT OTHER THAN THAT'. PT USES PUMP AND FEEDING TUBE AT HOME. PT HAS HX OF HH WITH [facility]. PT HAS 0 HX OF SNF. PT INFORMS THAT SHE DOES NOT HAVE A PCP. CM PRINTED PT AN IN-NETWORK PROVIDER LIST TO ASSIST PT IN SECURING A PCP. PT INFORMS THAT SHE HAS BEEN SEEING HER BARIATRIC DOCTOR DR. PAYNE AT [facility], AND SAW HIM LASTMONTH. CM ALSO PROVIDED PT WITH COMMUNITY RESOURCE LIST FOR ALCOHOL ABUSE TREATMENT OPTIONS. CM WILL REMAIN AVAILABLE TO ASSIST AND FOLLOW NEEDED.
--- NOTE | 2020-04-18 10:12 | NUR ---
RECIEVED REPORT AROUND 0715. ASSUMED CARE. IV INTACT LEFT AC. HEART MONITOR ATTACHED AT SR/ST. MEDS GIVEN PER JUN. PT STATED "I HAVE PAIN IN MY ABDOMEN" "6 OR 7" FOR A SCALE OF 0 TO 10. PT LYING IN BED. HAD SHOWER THIS AM. DISCUSSED WITH PT ABOUT ABSTAINING FROM ALCOHOL. CALL LIGHT WITHIN REACH. WILL CONTINUE TO MONITOR.
[2020-04-18 12:39] VITALS: BP 133/72
[2020-04-18 16:15] VITALS: BP 105/69
--- NOTE | 2020-04-18 18:58 | NUR ---
NO NEW CHANGES. PT SLEEPING COMFORTABLLY. MEDICATION DOSAGE CHANGE TO ATIVAN. SEE JUN. MEDICATION GIVEN PER JUN. IV INTACT LEFT AC. HEART MONITOR ATTACHED AT SR/ST. PT UP ADLIB. COMPLAINED OF DIARHEA THIS SHIFT. MEDICATION ORDERED TO HELP. HOURLY ROUNDING PERFORMED. CALL LIGHT WITHIN REACH. WILL CONTINUE TO MONITOR.
[2020-04-18 20:00] VITALS: BP 118/83
[2020-04-19 00:36] VITALS: BP 121/72
[2020-04-19 04:00] LABS: ALBUMIN 2.8 g/dL (3.4-5.0); CALCIUM 8.4 mg/dL (8.5-10.1); CREATININE 0.6 mg/dL (0.6-1.3); MAGNESIUM 2.1 mg/dL (1.8-2.4); POTASSIUM 3.7 mmol/L (3.5-5.1); TOTAL BILIRUBIN 0.2 mg/dL (<0.1-1.0); TOTAL PROTEIN 5.7 g/dL (6.4-8.2)
[2020-04-19 04:04] LABS: HEMATOCRIT 31.9 % (37.0-47.0); HEMOGLOBIN 10.3 gm/dL (12.0-15.0); MCH 25.9 pg (26.0-34.0); MCHC 32.2 g/dL (28.0-37.0); MCV 80.5 fL (80.0-100.0); MPV 8.3 fl. (7.2-11.1); RBC 3.96 mil/uL (4.20-5.00); RDW-CV 20.8 % (10.5-14.5); WBC 2.9 thou/uL (4.0-11.0)
[2020-04-19 04:46] VITALS: BP 140/86
--- NOTE | 2020-04-19 05:37 | NUR ---
ASSUMED CARE OF PATIENT AT 1930. PATIENT INQUIRED ABOUT TUBE FEEDING. PATIENT STATED THAT SHE IS ON OSMOLITE 50ML/HR OVER 24 HOURS OR 100ML/HR OVER 14 HOURS AT HOME. WILL FOLLOW UP WITH DAYSHIFT NURSE FOR ORDERS.
[2020-04-19 08:00] VITALS: BP 124/88
[2020-04-19 12:46] VITALS: BP 100/56
[2020-04-19 16:32] VITALS: BP 109/72
--- NOTE | 2020-04-19 19:07 | NUR ---
NO NEW CHANGES. PT LYING IN BED. IV INTACT RIGHT AC. HEART MONITOR ATTACHED AT SR/ST. MEDS GIVEN PER JUN. STATED PAIN THROUGHOUT SHIFT AND ANXIETY. HOURLY ROUNDING PERFORMED. IR IS TO SEE PT TOMORROW FOR PLACEMENT OF J TUBE. ONCE THAT IS FIXED. TUBE FEEDING IS TO RESUME. CURRENTLY NO TUBE FEEDING HAS BEEN GIVEN. NPO AFTER MIDNIGHT DUE TO POSSIBLE SURGERY OF J TUBE. CALL LIGHT KAYLIETONIA FRANKLIN. WILL CONTINUE TO MONITOR.
[2020-04-19 20:00] VITALS: BP 131/81
[2020-04-20 00:32] VITALS: BP 114/80
--- NOTE | 2020-04-20 04:18 | NUR ---
ASSUMED CARE OF PT AFTER REPORT AT 1930. PT A&OX4. VSS. PHYSICAL ASSESSMENT COMPLETED AND CHARTED. PT ON RA. PT TRACING SR ON TELE. PT COMLPAINED OF STOMACH PAIN & DIARRHEA- MEDS GIVEN PER JUN. INSTRUCTED ON NPO POST MIDNIGHT. COMMUNICATES UNDERSTANDING. CIWA CHARTED. CALL LIGHT WITHIN REACH.
[2020-04-20 04:37] VITALS: BP 140/97
[2020-04-20 05:09] LABS: HEMOGLOBIN 9.9 gm/dL (12.0-15.0); MCH 25.7 pg (26.0-34.0); MCV 80.1 fL (80.0-100.0); MPV 8.4 fl. (7.2-11.1); RBC 3.87 mil/uL (4.20-5.00); RDW-CV 20.4 % (10.5-14.5); WBC 3.4 thou/uL (4.0-11.0)
[2020-04-20 05:40] LABS: ALBUMIN 2.6 g/dL (3.4-5.0); CALCIUM 8.3 mg/dL (8.5-10.1); CREATININE 0.6 mg/dL (0.6-1.3); MAGNESIUM 2.1 mg/dL (1.8-2.4); POTASSIUM 3.4 mmol/L (3.5-5.1); TOTAL BILIRUBIN 0.2 mg/dL (<0.1-1.0); TOTAL PROTEIN 5.6 g/dL (6.4-8.2)
[2020-04-20 07:30] VITALS: BP 121/82
[2020-04-20 12:00] VITALS: BP 125/75
--- NOTE | 2020-04-20 13:04 | NUR ---
J tube to be placed. ETOH withdrawals. Anticipate dc in a few days.
--- NOTE | 2020-04-20 15:41 | NUR ---
A&OX 4, PWD. PT RESTING IN BED WITH EYES CLOSED. WHEN AWAKE. PT IS ANXIOUS AND HAS TREMORS. C/O STOMACH PAIN'S AND RECEIVING PAIN MEDS FOR THIS ALSO ATIVAN TO HELP CALM HER. IV FLUIDS NS INFUSING AT 80MLS/HR IN RIGHT ELBOW VIA PUMP WITHOUT DIFFICULTY. NO C/O AT THIS TIME. WILL CONTINUE TO MONITOR. WILL BE NPO AFTER MN FOR J-TUBE REPLACEMENT.
[2020-04-20 16:00] VITALS: BP 132/86
[2020-04-20 20:00] VITALS: BP 121/84
[2020-04-21] VITALS (7 sets, daily range): BP systolic 12–139; BP diastolic 68–86
--- NOTE | 2020-04-21 04:44 | NUR ---
ASSUMED CARE OF PT AFTER REPORT AT 1930. PT A&OX4. VSS. PHYSICAL ASSESSMENT COMPLETED AND CHARTED. PT ON RA. PT TRACING SR ON TELE. PT UPADLIB TO RESTROOM. PT COMPLAINED OF STOMACH PAIN-MED GIVEN PER JUN. PT INSTRUCTED NPO POST MIDNIGHT FOR J-TUBE REPLACEMENT. COMMUNICATES UNDERSTANDING. CIWA CHARTED. CALL LIGHT WITHIN REACH.
[2020-04-21 05:33] LABS: HEMOGLOBIN 9.1 gm/dL (12.0-15.0); MCH 26.3 pg (26.0-34.0); MCHC 32.7 g/dL (28.0-37.0); MCV 80.7 fL (80.0-100.0); MPV 8.2 fl. (7.2-11.1); RBC 3.47 mil/uL (4.20-5.00); RDW-CV 20.5 % (10.5-14.5); WBC 3.8 thou/uL (4.0-11.0)
[2020-04-21 05:53] LABS: ALBUMIN 2.6 g/dL (3.4-5.0); CALCIUM 8.2 mg/dL (8.5-10.1); CREATININE 0.6 mg/dL (0.6-1.3); POTASSIUM 3.8 mmol/L (3.5-5.1); TOTAL BILIRUBIN 0.1 mg/dL (<0.1-1.0); TOTAL PROTEIN 5.4 g/dL (6.4-8.2)
--- NOTE | 2020-04-21 07:20 | NUR ---
CHANGE OF SHIFT BEDSIDE REPORT GIVEN PATIENT SEEN AT BEDSIDE, IN BED RESTING ASSUMED PATIENT CARE
--- NOTE | 2020-04-21 13:04 | NUR ---
Pt having J tube replaced today, manage pain. Anticipate dc to home tomorrow, if tolerating feeds. CM to discuss in home caregivers with Pt and community resources.
[2020-04-22] VITALS: BP 126/84
[2020-04-22 05:20] LABS: HEMATOCRIT 31.5 % (37.0-47.0); HEMOGLOBIN 9.9 gm/dL (12.0-15.0); MCH 25.6 pg (26.0-34.0); MCHC 31.5 g/dL (28.0-37.0); MCV 81.2 fL (80.0-100.0); MPV 7.7 fl. (7.2-11.1); RBC 3.88 mil/uL (4.20-5.00); RDW-CV 20.5 % (10.5-14.5); WBC 4.4 thou/uL (4.0-11.0)
[2020-04-22 05:31] LABS: ALBUMIN 2.9 g/dL (3.4-5.0); CALCIUM 8.9 mg/dL (8.5-10.1); CREATININE 0.6 mg/dL (0.6-1.3); MAGNESIUM 2.1 mg/dL (1.8-2.4); POTASSIUM 3.8 mmol/L (3.5-5.1); TOTAL BILIRUBIN 0.1 mg/dL (<0.1-1.0); TOTAL PROTEIN 5.8 g/dL (6.4-8.2)
[2020-04-22 06:13] VITALS: BP 118/70
[2020-04-22] MEDS ORDERED: BUSPIRONE HCL10 MG PO (08:31)
[2020-04-22] MEDS ORDERED: ONDANSETRON ODT8 MG PO (08:31)
[2020-04-22] MEDS ORDERED: CYMBALTA30 MG PO (08:31)
[2020-04-22] MEDS ORDERED: CREON DR 12,001 EACH PER TUBE (08:31)
[2020-04-22] MEDS ORDERED: ATIVAN0.5 M1 PO (08:42)
[2020-04-22 11:24] VITALS: BP 132/81
--- NOTE | 2020-04-22 12:40 | NUR ---
ASSUMED CARE OF PATIENT AT 0700. PATIENT IS PLEASANT AND COOPERATIVE. MEDICATIONS ADMINISTERED ACCORDING TO EMAR. PATIENT DESIRES TO BE DISCHARGED TO HOME SOON POSSIBLE. COMPLAINED OF PAIN AT A 7, PAIN MED GIVEN AFTER NON PHARMACOLOGICAL INTERVENTIONS INEFFECTIVE. DISCHARGE ORDERS RECIEVED AND PATIENT INFORMED.
[2020-04-22 12:53] VITALS: BP 132/81
--- NOTE | 2020-04-22 13:29 | NUR ---
DISCHARGED ORDERS RECIEVED.DISCHARGE INSTRUCTIONS, SCRIPTS AND FOLLOW UP GIVEN TO PATIENT AND PATIENT VERBALIZES UNDERSTANDING. IV AND MIGRANT LEADER REMOVED. PATIENT DISCHARGED WITH ALL BELONGINGS AND DISCHARGE INSTRUCTION AND EDUCATION.
== END 2020-04-22 13:16 | disposition home or self-care (01) | DRG 439 ==
LOC: M.ERS 05:44 → M.TBA-ER 07:11 → M.2W 13:23
PROVIDERS: Emergency Medicine; Internal Medicine; ADMIT Internal Medicine; ATTEND Internal Medicine
PROC: 0D2DXUZ Change Feeding Device in Lower Intestinal Tract, External Approach (ICD-10-PCS; principal; 2020-04-21)
DX: K85.20 Alcohol induced acute pancreatitis without necrosis or infection (principal); K50.90 Crohn's disease, unspecified, without complications; F10.230 Alcohol dependence with withdrawal, uncomplicated; E87.2 Acidosis; F32.9 Major depressive disorder, single episode, unspecified; F41.1 Generalized anxiety disorder; Z87.442 Personal history of urinary calculi; Z20.822 Contact with and (suspected) exposure to COVID-19; Z90.49 Acquired absence of other specified parts of digestive tract; Z79.52 Long term (current) use of systemic steroids; Z88.8 Allergy status to other drugs, medicaments and biological substances; Z91.041 Radiographic dye allergy status; Z87.891 Personal history of nicotine dependence; Z83.3 Family history of diabetes mellitus; Z82.49 Family history of ischemic heart disease and other diseases of the circulatory system; Z23 Encounter for immunization